=== PATIENT | female | born 1960 | race African-American/Black ===

== ENCOUNTER 2018-02-21 18:24 | Emergency (ER) | payer BC ==
[2018-02-21 19:12] LABS: Hemoglobin 11.9 g/dL (12.0-16.0); Mean Corpuscular HGB CONC 32.8 g/dL (32.0-36.0); Mean Corpuscular Hemoglobin 25.8 pg (27.0-31.0); Mean Corpuscular Volume 78.5 fl (81.0-99.0); Mean Platelet Volume 9.5 fL (7.4-10.4); Platelet Count 247 thou/uL (130-400); Red Blood Cell (RBC) Count 4.61 mill/uL (4.20-5.40); White Blood Cell (WBC) Count 8.9 thou/uL (4.8-10.8)
[2018-02-21] MEDS ORDERED: Ondansetron ODT 4 MG TAB ONE (19:12)
[2018-02-21 19:13] LABS: Bilirubin Negative (Negative); Blood, Urine Small (Negative); Clarity CLEAR (Clear); Glucose, Urine (Dipstick) 100 mg/dL (Negative); Leukocyte Negative (Negative); Nitrite Negative (Negative); Protein, Urine (Dipstick) 300 mg/dL (Neg-Trace); Specific Gravity, Urine 1.015 (1.002-1.036); Urobilinogen 0.2 mg/dL (0.2-1.0); pH, Urine 5.5 (5.0-9.0)
[2018-02-21 19:15] LABS: Bacteria/HPF None Seen HPF (None Seen); Hyaline Casts/LPF 0-3 HYALINE CAST LPF (0-3 Hyaline); Pathc Cast-AUWi Flag 0.58 (0-2.49)
[2018-02-21 19:25] LABS: Transitional Epithelial 0-3 HPF (0-3)
[2018-02-21 19:35] LABS: ALT (SGPT) 22 U/L (8-55); AST (SGOT) 18 U/L (5-34); Alkaline Phosphatase 103 U/L (40-150); Anion Gap 14 mmol/L (10-20); BUN (Urea Nitrogen) 27 mg/dL (9.8-20.1); Bilirubin, Total 0.4 mg/dL (0.2-1.2); Calc. Creatinine Clearance 0 mL/min (70-130); Calcium 9.7 mg/dL (7.8-10.44); Carbon Dioxide 21 mmol/L (22-29); Chloride 110 mmol/L (98-107); Estimated GFR-MDRD 26; Globulin 3.6 g/dL (2.4-3.5); Glucose 153 mg/dL (70-105); Lipase 11 U/L (8-78); Potassium 4.2 mmol/L (3.5-5.1); Protein, Total 7.6 g/dL (6.0-8.3); Sodium 141 mmol/L (136-145)
[2018-02-21 19:37] LABS: Band 10 % (5-11); Eosinophils 3 % (0-10); Hypochromia SLIGHT = 6-15 cells (100X) (0-5/hpf); Lymphocytes 9 % (21-51); MDiff Complete? YES; Microcytosis SLIGHT = 6-15 cells (100X) (0-5/hpf); Monocytes 3 % (0-10); Neutrophil 75 % (42-75); Ovalocytes SLIGHT = 2-5 cells (100X) (0-1/hpf); PLT Morphology Comment Appears Adequate; Polychromasia SLIGHT = 2-3 cells (100X) (0-2/hpf)
[2018-02-21] MEDS ORDERED: Acetaminophen 500 MG TAB ONE (20:39)
[2018-02-21] MEDS ORDERED: metroNIDAZOLE 250 MG TAB ONE (20:42)
== END 2018-02-21 21:43 | disposition home or self-care (01) ==
LOC: ERS 18:24
DX: R19.7 Diarrhea, unspecified (principal); R50.9 Fever, unspecified; I12.9 Hypertensive chronic kidney disease with stage 1 through stage 4 chronic kidney disease, or unspecified chronic kidney disease; N18.9 Chronic kidney disease, unspecified; E11.9 Type 2 diabetes mellitus without complications; E78.5 Hyperlipidemia, unspecified; I10 Essential (primary) hypertension; F32.9 Major depressive disorder, single episode, unspecified
CPT/HCPCS: 36415; 80053; 81003; 81015; 83690; 85025; 96360; Q0162

== ENCOUNTER 2018-04-05 11:23 | Outpatient (CLI) | payer BC | END 2018-04-05 11:24 | disposition home or self-care (01) | LOC: BICMAMMO 11:23 | PROVIDERS: ATTEND Family Medicine | DX: Z12.31 Encounter for screening mammogram for malignant neoplasm of breast (principal) | CPT/HCPCS: 77063; 77067 ==

== ENCOUNTER 2018-08-04 16:00 | Outpatient (CLI) | payer BC | END 2018-08-04 16:01 | disposition home or self-care (01) | LOC: SLEEPLAB 16:00 | PROVIDERS: ATTEND Family Medicine | DX: G47.33 Obstructive sleep apnea (adult) (pediatric) (principal); R53.83 Other fatigue; E66.9 Obesity, unspecified; R06.83 Snoring; F32.9 Major depressive disorder, single episode, unspecified; R51 Headache; I10 Essential (primary) hypertension; E11.9 Type 2 diabetes mellitus without complications; G31.84 Mild cognitive impairment of uncertain or unknown etiology | CPT/HCPCS: 95806 ==

== ENCOUNTER 2019-02-23 22:17 | Inpatient (IN) | payer BC ==
[2019-02-23 22:50] LABS: #Basophils 0.1 thou/uL (0.0-0.2); #Eosinphils 0.1 thou/uL (0.0-0.7); #Lymphocytes 2.3 thou/uL (1.20-3.40); #Monocytes 0.6 thou/uL (0.11-0.59); %Basophils 0.7 % (0.0-1.0); %Eosinophils 1.8 % (0.0-10.0); %Lymphocytes 28.7 % (21.0-51.0); %Monocytes 6.9 % (0.0-10.0); %Neutrophils 61.9 % (42.0-75.0); Hemoglobin 9.9 g/dL (12.0-16.0); Mean Corpuscular HGB CONC 32.2 g/dL (32.0-36.0); Mean Corpuscular Hemoglobin 25.7 pg (27.0-31.0); Mean Platelet Volume 9.5 fL (7.4-10.4); Platelet Count 236 thou/uL (130-400); Red Blood Cell (RBC) Count 3.83 mill/uL (4.20-5.40); White Blood Cell (WBC) Count 8.1 thou/uL (4.8-10.8)
[2019-02-23] MEDS ORDERED: Nitroglycerin 2% Ointment 1 INCH/1 GM Packet ONE (22:50)
--- NOTE | 2019-02-23 22:55 | RAD ---
XR Chest 1 View Portable History: [Difficulty breathing. Hypertension.] Comparison: Chest radiograph 02/17/2019 Findings: Lungs are clear. No pneumothorax or effusion. Cardiac silhouette and mediastinal contours a re within normal limits. Impression: No acute intrathoracic abnormality.
[2019-02-23 23:16] LABS: ALT (SGPT) 26 U/L (8-55); AST (SGOT) 22 U/L (5-34); Albumin 3.6 g/dL (3.5-5.0); Alkaline Phosphatase 89 U/L (40-150); Anion Gap 15 mmol/L (10-20); BUN (Urea Nitrogen) 36 mg/dL (9.8-20.1); Bilirubin, Total 0.2 mg/dL (0.2-1.2); Calc. Creatinine Clearance 0 mL/min (70-130); Calcium 9.3 mg/dL (7.8-10.44); Carbon Dioxide 23 mmol/L (22-29); Chloride 107 mmol/L (98-107); Estimated GFR-MDRD 19; Globulin 2.6 g/dL (2.4-3.5); Glucose 341 mg/dL (70-105); Potassium 3.7 mmol/L (3.5-5.1); Protein, Total 6.2 g/dL (6.0-8.3); Sodium 141 mmol/L (136-145)
[2019-02-24] MEDS ORDERED: Ondansetron ODT 4 MG TAB SL PRN (01:14)
[2019-02-24] MEDS ORDERED: Ondansetron PF 4 MG/2 ML Vial IVP PRN (01:14)
[2019-02-24] MEDS ORDERED: Dextrose 50% Abboject 50 ML SYRINGE SLOW IVP PRN (01:22)
[2019-02-24] MEDS ORDERED: Dextrose 5% in Water 1,000 ML IV PRN (01:22)
[2019-02-24] MEDS ORDERED: hydrALAZINE 20 MG/ML VIAL SLOW IVP PRN (01:25)
[2019-02-24 01:55] VITALS: BMI 33.5
[2019-02-24 02:11] LABS: Troponin I 0.046 ng/mL (< 0.028)
[2019-02-24] MEDS ORDERED: HumaLOG 300 UNITS/3 ML VIAL SC PRN (05:37)
[2019-02-24] MEDS ORDERED: Non-Formulary Item 1 EACH (Ondansetron Hcl 4 MG) PO PRN (05:37)
[2019-02-24 05:41] LABS: #Eosinphils 0.2 thou/uL (0.0-0.7); #Lymphocytes 1.9 thou/uL (1.20-3.40); #Monocytes 0.7 thou/uL (0.11-0.59); #Neutrophils 4.4 thou/uL (1.40-6.50); %Basophils 0.3 % (0.0-1.0); %Eosinophils 2.3 % (0.0-10.0); %Lymphocytes 26.7 % (21.0-51.0); %Monocytes 9.8 % (0.0-10.0); %Neutrophils 60.9 % (42.0-75.0); Hemoglobin 9.3 g/dL (12.0-16.0); Mean Corpuscular HGB CONC 31.7 g/dL (32.0-36.0); Mean Corpuscular Hemoglobin 25.7 pg (27.0-31.0); Platelet Count 219 thou/uL (130-400); RBC Distribution Width 13.1 % (11.5-14.5); Red Blood Cell (RBC) Count 3.62 mill/uL (4.20-5.40); White Blood Cell (WBC) Count 7.3 thou/uL (4.8-10.8)
[2019-02-24 05:56] LABS: Anion Gap 13 mmol/L (10-20); BUN (Urea Nitrogen) 37 mg/dL (9.8-20.1); Calc. Creatinine Clearance 32 mL/min (70-130); Calcium 9.2 mg/dL (7.8-10.44); Carbon Dioxide 25 mmol/L (22-29); Chloride 110 mmol/L (98-107); Estimated GFR-MDRD 21; Glucose 197 mg/dL (70-105); Potassium 3.9 mmol/L (3.5-5.1); Sodium 144 mmol/L (136-145)
[2019-02-24 06:02] LABS: Troponin I 0.053 ng/mL (< 0.028)
[2019-02-24] MEDS ORDERED: Ondansetron ODT 4 MG TAB PO PRN (06:11)
--- NOTE | 2019-02-24 06:59 | HP ---
PRIMARY CARE PHYSICIAN: Michael Padilla MD CODE STATUS: Full code. TIME OF EVALUATION: 12:25 a.m. CHIEF COMPLAINT: Chest pain. HISTORY OF PRESENT ILLNESS: This is a 58-year-old female patient with past medical history of diabetes, hyperlipidemia, hypertension, and CKD, came to the hospital after having severe chest pain that was in the middle of the chest associated with shortness of breath and very high blood pressure. The patient has had some change in medication for blood pressure in the past few days, had been switched to clonidine patch, those are her p.o. medications. She has reported that she has been uncontrolled and this is likely the trigger for her symptoms. Symptoms have improved after blood pressure has been controlled in the ER. Symptoms were severe and with sudden onset, rated at 10/10 when tested. REVIEW OF SYSTEMS: CONSTITUTIONAL: No fever, chills, or generalized weakness. RESPIRATORY: No cough or sputum production. The patient did report shortness of breath. CARDIOVASCULAR: The patient has chest pain with high blood pressure. No palpitation. GASTROINTESTINAL: The patient had nausea. No vomiting, diarrhea, or abdominal pain. 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 GENITOURINARY: No burning on urination. EXTREMITIES: leg swelling. All other systems were reviewed and negative except for the findings mentioned above. PAST MEDICAL HISTORY: As mentioned in the HPI. PAST SURGICAL HISTORY: Right rotator cuff repair, cholecystectomy, and hysterectomy. PSYCHIATRIC HISTORY: Includes depression. SOCIAL HISTORY: No alcohol. No drugs. No smoking history. FAMILY HISTORY: Reviewed and noncontributory for current presentation. KNOWN ALLERGIES: To Ambien, Zithromax, clarithromycin, Compazine, erythromycin, hydrocodone, iodine contrast, lisinopril, prochlorperazine, Restoril, tramadol, and zolpidem. REPORTED MEDICATIONS: 1. Clonidine patch. 2. Calcitriol. 3. Ferrous sulfate. 4. Hydralazine. 5. Nifedipine. 6. Combigan. 7. Nitroglycerin. 8. Lipitor. 9. Doxycycline. 10. Pantoprazole. 11. Zofran. 12. Fluoxetine. 13. Metoprolol. 14. Humalog. 15. Trazodone. 16. Tradjenta. PHYSICAL EXAMINATION: VITAL SIGNS: On presentation; blood pressure 181/85 with heart rate 91, respiratory rate was 20, temperature 98.6, pain was 0/10, and oxygen saturation was 99% on room air. GENERAL APPEARANCE: The patient is alert, oriented, not in acute distress. HEENT: Eyes, normal conjunctivae. Moist oral mucosa. Anicteric. No JVD. RESPIRATORY: Bilateral air entry. No rales. No wheezes. Symmetric expansion. CARDIOVASCULAR: Normal rate. Regular rhythm. No murmurs. No gallop. leg edema. ABDOMEN: Soft. Normal bowel sounds. MUSCULOSKELETAL: Baseline range of motion and strength. No tenderness. SKIN: Warm, intact. No pallor. No rash. No redness. Peripheral pulses are present. Capillary refill seems to be intact. NEURO: No evidence of any new focal weakness. Baseline speech. Cranial nerves seem to be intact. PSYCH: The patient is in good mood. No anxiety. Optimal judgment. DIAGNOSTIC DATA: EKG was reviewed. The patient has normal sinus rhythm with a rate of 83, NV 112, QRS 68, and QT corrected 477. Chest x-ray was reviewed. The patient had no acute intrathoracic abnormalities. LABORATORY DATA: Reviewed. The patient has white count 8.1, hemoglobin 9.9, MCV 80, and platelet count 236. D-dimer 0.66. Chemistry; sodium 141, potassium 3.7, chloride 107, carbon dioxide 23, anion gap 15, BUN 36, creatinine 3.03, GFR 19, glucose 241, calcium 9.3, total bilirubin 0.2, AST 22, ALT 26, and alkaline phos 89. Troponin 0.025, the second one 0.046. Beta natriuretic peptide 79.5. ASSESSMENT AND PLAN: The patient will be placed in the hospital with following medical problems: 1. Hypertensive emergency. The patient presented with chest pain and shortness of breath associated with very high blood pressure. Home medications have been restarted and reconciled them. 2. Hyperlipidemia. Low-cholesterol diet is advised. Continue atorvastatin. 3. Chronic kidney disease. The patient follows with Dr. Patel as outpatient. Might need to be consulted for a system with blood pressure control and needs for hemodialysis. 4. Deep venous thrombosis prophylaxis. The patient will be placed on heparin. 5. Uncontrolled diabetes with blood sugar at 241. The patient's home medications have been reconciled. The patient has been started on sliding scale. 6. Mildly elevated D-dimer, could be related to underlying kidney disease. The patient presented with chest pain, so a V/Q scan will be done in the morning. Unable to do CT due to kidney failure. 7. Chronic normocytic anemia with MCV 80. This is a chronic problem. The patient is stable. No need for any acute intervention at this point. 8. [id number] myocardial infarction, type 2. The patient has an increase in troponin from 0.025 to 0.046. This is likely secondary to underlying hypertensive emergency. We will treat underlying condition. We will trend troponin and treat accordingly. Job ID: [id number]
[2019-02-24] MEDS: Calcitriol 0.25 MCG CAP PO SCH (08:39)
[2019-02-24] MEDS: hydrALAZINE 25 MG TAB PO SCH ×3 (08:39→21:36)
[2019-02-24] MEDS: Ferrous Sulfate 325 MG TAB PO SCH (08:40)
[2019-02-24] MEDS: NIFEdipine XL 30 MG TAB PO SCH (08:40)
[2019-02-24] MEDS: Heparin 5,000 UNITS/ML VIAL SC SCH ×3 (08:42→21:37)
[2019-02-24] MEDS ORDERED: DOXYCYCLINE HYCLATE 100 MG PO SCH (09:00)
[2019-02-24] MEDS ORDERED: Non-Formulary Item 1 EACH (Pantoprazole Sodium [Protonix] 40 MG) PO SCH (09:00)
[2019-02-24] MEDS ORDERED: Non-Formulary Item 1 EACH (Hydralazine Hcl [Hydralazine Hcl] 50 MG) PO SCH (09:00)
[2019-02-24] MEDS ORDERED: NIFEdipine XL 60 MG TAB PO SCH (09:00)
[2019-02-24] MEDS ORDERED: Non-Formulary Item 1 EACH (Metoprolol Succinate [Metoprolol Succinate] 200 MG) PO SCH (09:00)
[2019-02-24] MEDS ORDERED: Non-Formulary Item 1 EACH (Linagliptin [Tradjenta] 5 MG) PO SCH (09:00)
[2019-02-24] MEDS ORDERED: cloNIDine 0.2mg/24 Hour PATCH TD SCH ×2 (09:00)
[2019-02-24] MEDS: Alogliptin 25 MG TAB PO SCH (10:08)
[2019-02-24] MEDS: Brimonidine Tartrate 0.2% Ophth Soln 5 ml Bottle R EYE SCH ×2 (10:08→21:35)
[2019-02-24] MEDS: Acetaminophen 325 MG TAB PO PRN (10:10)
[2019-02-24] MEDS: Timolol 0.5% Ophth Soln 5 ml Bottle R EYE SCH ×2 (10:10→21:40)
[2019-02-24] MEDS: Insulin Regular 300 UNITS/3 ML VIAL SC PRN (11:47)
--- NOTE | 2019-02-24 16:33 | PDOC.PN ---
- Subjective Encounter Start Date: 02/24/19 Encounter Start Time: 09:30 Subjective: Reports chest is improved, SOB is better -: Reports having a stress test done by Dr. jacobs last month -: Is not sure of results - Objective Resuscitation Status - Order Detail: 02/24/19 01:20 Resuscitation Status Routine Resuscitation Status: FULL: Full Resuscitation Vital Signs & Weight: Vital Signs (12 hours) Temp Pulse Resp BP BP Pulse Ox 02/24/19 15:32 98.5 F 71 16 178/84 H 96 02/24/19 15:19 69 02/24/19 11:07 98.8 F 77 16 177/57 H 98 02/24/19 10:10 74 02/24/19 08:40 74 02/24/19 08:39 74 02/24/19 07:16 98.5 F 77 20 180/83 H 98 02/24/19 04:50 98.3 F 78 20 165/79 H 98 Weight Weight 91.535 kg I&O: 02/23/19 02/24/19 02/25/19 06:59 06:59 06:59 Intake Total 360 240 Output Total 500 Balance -140 240 Result Diagrams: 02/24/19 04:46 02/24/19 04:46 Additional Labs: Accuchecks 02/24/19 11:12 POC Glucose 243 H Phys Exam - Physical Examination HEENT: PERRLA, moist MMs Neck: no nodes, full ROM Respiratory: clear to auscultation bilateral Cardiovascular: RRR Gastrointestinal: soft, non-tender Musculoskeletal: no edema, pulses present Neurological: non-focal, normal sensation Lymphatic: no nodes Psychiatric: normal affect, A&O x 3 Skin: cap refill <2 seconds Dx/Plan (1) Chest discomfort Code(s): R07.89 - OTHER CHEST PAIN Status: Acute (2) Dyspnea Code(s): R06.00 - DYSPNEA, UNSPECIFIED Status: Acute (3) Hypertension Code(s): I10 - ESSENTIAL (PRIMARY) HYPERTENSION Status: Chronic (4) Chronic renal disease Code(s): N18.9 - CHRONIC KIDNEY DISEASE, UNSPECIFIED Status: Chronic - Plan cont current plan of care VQ scan today -: Consult cardiology for persistent CP, stress last month -: VS and symptoms improved, will continue to monitor * .
[2019-02-24] MEDS ORDERED: INSULIN GLARGINE HUM REC ANLOG 35 UNIT SC SCH (21:00)
[2019-02-24] MEDS ORDERED: Non-Formulary Item 1 EACH (Atorvastatin Calcium [Lipitor] 80 MG) PO SCH (21:00)
[2019-02-24] MEDS ORDERED: INSULIN GLARGINE HUM REC ANLOG 58 UNIT SC SCH (21:00)
[2019-02-24] MEDS: Insulin Glargine 35 UNITS in Pre-Filled Syringe 1 EACH SC SCH ×2 (21:34→21:44)
[2019-02-24] MEDS: Atorvastatin Calcium 40 MG TAB PO SCH (21:36)
[2019-02-24] MEDS: FLUoxetine HCl 20 MG CAP PO SCH (21:37)
[2019-02-25] MEDS: Ferrous Sulfate 325 MG TAB PO SCH (09:17)
[2019-02-25] MEDS: Calcitriol 0.25 MCG CAP PO SCH (09:17)
[2019-02-25] MEDS: NIFEdipine XL 30 MG TAB PO SCH (09:17)
[2019-02-25] MEDS: hydrALAZINE 25 MG TAB PO SCH ×3 (09:17→21:38)
[2019-02-25] MEDS: Brimonidine Tartrate 0.2% Ophth Soln 5 ml Bottle R EYE SCH ×2 (09:18→21:37)
[2019-02-25] MEDS: Timolol 0.5% Ophth Soln 5 ml Bottle R EYE SCH ×2 (09:18→21:37)
[2019-02-25] MEDS: Heparin 5,000 UNITS/ML VIAL SC SCH ×3 (09:19→21:39)
[2019-02-25] MEDS: Alogliptin 25 MG TAB PO SCH (09:20)
[2019-02-25 09:27] LABS: #Basophils 0.1 thou/uL (0.0-0.2); #Eosinphils 0.2 thou/uL (0.0-0.7); #Lymphocytes 1.6 thou/uL (1.20-3.40); #Monocytes 0.6 thou/uL (0.11-0.59); #Neutrophils 4.2 thou/uL (1.40-6.50); %Eosinophils 3.5 % (0.0-10.0); %Lymphocytes 23.5 % (21.0-51.0); %Monocytes 9.3 % (0.0-10.0); %Neutrophils 62.7 % (42.0-75.0); Hemoglobin 10.4 g/dL (12.0-16.0); Mean Corpuscular HGB CONC 31.9 g/dL (32.0-36.0); Mean Corpuscular Hemoglobin 25.7 pg (27.0-31.0); Mean Corpuscular Volume 80.4 fL (78.0-98.0); Mean Platelet Volume 9.7 fL (7.4-10.4); Platelet Count 233 thou/uL (130-400); Red Blood Cell (RBC) Count 4.04 mill/uL (4.20-5.40); White Blood Cell (WBC) Count 6.8 thou/uL (4.8-10.8)
[2019-02-25 09:44] LABS: Anion Gap 14 mmol/L (10-20); BUN (Urea Nitrogen) 32 mg/dL (9.8-20.1); Calc. Creatinine Clearance 36 mL/min (70-130); Calcium 9.8 mg/dL (7.8-10.44); Carbon Dioxide 26 mmol/L (22-29); Chloride 108 mmol/L (98-107); Estimated GFR-MDRD 24; Glucose 71 mg/dL (70-105); Potassium 3.8 mmol/L (3.5-5.1); Sodium 144 mmol/L (136-145)
--- NOTE | 2019-02-25 18:30 | PDOC.PN ---
- Subjective Encounter Start Date: 02/25/19 Encounter Start Time: 11:30 Subjective: Patient examined, denies complaints -: Denies CP, SOB today -: No overnight events - Objective Resuscitation Status - Order Detail: 02/24/19 01:20 Resuscitation Status Routine Resuscitation Status: FULL: Full Resuscitation Vital Signs & Weight: Vital Signs (12 hours) Temp Pulse Resp BP Pulse Ox 02/25/19 15:34 97.8 F 64 16 182/78 H 97 02/25/19 11:27 98.8 F 57 L 20 162/70 H 98 02/25/19 07:50 98.0 F 53 L 16 181/75 H 99 Weight Weight 91.535 kg I&O: 02/24/19 02/25/19 02/26/19 06:59 06:59 06:59 Intake Total 360 1460 Output Total 500 Balance -140 1460 Result Diagrams: 02/25/19 09:03 02/25/19 09:03 Additional Labs: Accuchecks 02/25/19 02/25/19 02/25/19 16:36 12:34 11:33 POC Glucose 111 H 110 63 L 02/25/19 02/24/19 04:02 20:45 POC Glucose 203 H 162 H Phys Exam - Physical Examination HEENT: PERRLA, moist MMs Neck: no nodes Respiratory: clear to auscultation bilateral Cardiovascular: RRR Gastrointestinal: soft, non-tender Musculoskeletal: pulses present, edema present Neurological: non-focal, normal sensation Lymphatic: no nodes Psychiatric: normal affect, A&O x 3 Skin: no rash Dx/Plan (1) Chest discomfort Code(s): R07.89 - OTHER CHEST PAIN Status: Acute (2) Dyspnea Code(s): R06.00 - DYSPNEA, UNSPECIFIED Status: Acute (3) Hypertension Code(s): I10 - ESSENTIAL (PRIMARY) HYPERTENSION Status: Chronic (4) Chronic renal disease Code(s): N18.9 - CHRONIC KIDNEY DISEASE, UNSPECIFIED Status: Chronic - Plan Awaiting for cardiology recommendations, patient with neg stress -: a month ago but still having chest pain, -: Will continue to monitor, -: Discussed with Dr. Quiroz * .
[2019-02-25] MEDS ORDERED: cloNIDine 0.1 MG TAB PO PRN (18:48)
[2019-02-25] MEDS: FLUoxetine HCl 20 MG CAP PO SCH (21:38)
[2019-02-25] MEDS: Atorvastatin Calcium 40 MG TAB PO SCH (21:38)
[2019-02-25] MEDS: Insulin Glargine 35 UNITS in Pre-Filled Syringe 1 EACH SC SCH (21:40)
[2019-02-25] MEDS: Acetaminophen 325 MG TAB PO PRN (22:45)
[2019-02-26] MEDS: Nitroglycerin 0.4 MG TAB (25 Tab Bottle) SL PRN ×2 (02:35→02:40)
[2019-02-26] MEDS: Acetaminophen 325 MG TAB PO PRN (02:50)
[2019-02-26] MEDS: Calcitriol 0.25 MCG CAP PO SCH (09:38)
[2019-02-26] MEDS: Heparin 5,000 UNITS/ML VIAL SC SCH ×3 (09:39→21:14)
[2019-02-26] MEDS: Ferrous Sulfate 325 MG TAB PO SCH (09:39)
[2019-02-26] MEDS: Timolol 0.5% Ophth Soln 5 ml Bottle R EYE SCH ×2 (09:39→21:13)
[2019-02-26] MEDS: hydrALAZINE 25 MG TAB PO SCH ×3 (09:39→21:15)
[2019-02-26] MEDS: NIFEdipine XL 30 MG TAB PO SCH (09:39)
[2019-02-26] MEDS: Brimonidine Tartrate 0.2% Ophth Soln 5 ml Bottle R EYE SCH ×2 (09:40→21:11)
[2019-02-26] MEDS: Alogliptin 25 MG TAB PO SCH (09:41)
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
--- NOTE | 2019-02-26 14:26 | PDOC.PN ---
- Subjective Encounter Start Date: 02/26/19 Encounter Start Time: 07:40 Pt seen for followup re: chest pain. Reports chest pain is better. No nausea or vomiting. - Objective Resuscitation Status - Order Detail: 02/24/19 01:20 Resuscitation Status Routine Resuscitation Status: FULL: Full Resuscitation MAR Reviewed: Yes Vital Signs & Weight: Vital Signs (12 hours) Temp Pulse Resp BP BP Pulse Ox 02/26/19 10:45 97.5 F L 63 16 148/73 H 99 02/26/19 09:39 57 L 02/26/19 07:47 98.2 F 57 L 20 154/72 H 100 02/26/19 02:55 135/69 02/26/19 02:35 61 18 160/77 H Weight Weight 201 lb 12.8 oz I&O: 02/25/19 02/26/19 02/27/19 06:59 06:59 06:59 Intake Total 1460 900 Balance 1460 900 Result Diagrams: 02/25/19 09:03 02/25/19 09:03 Additional Labs: Accuchecks 02/26/19 02/26/19 02/25/19 10:50 06:12 20:46 POC Glucose 91 99 268 H 02/25/19 16:36 POC Glucose 111 H EKG Reviewed by me: Yes (Tele; NSR) Phys Exam - Physical Examination Obese HEENT: moist MMs Neck: supple Respiratory: clear to auscultation bilateral Cardiovascular: RRR Gastrointestinal: soft Neurological: moves all 4 limbs Psychiatric: normal affect Dx/Plan (1) Chest pain Code(s): R07.9 - CHEST PAIN, UNSPECIFIED Status: Acute Comment: for cath tomorrow; VQ report pending (2) Chronic renal disease Code(s): N18.9 - CHRONIC KIDNEY DISEASE, UNSPECIFIED Status: Chronic Qualifiers: Chronic kidney disease stage: stage 4 (severe) Qualified Code(s): N18.4 - Chronic kidney disease, stage 4 (severe) Comment: stable (3) Hypertension Code(s): I10 - ESSENTIAL (PRIMARY) HYPERTENSION Status: Chronic Comment: Monitor vital signs, titrate antihypertensives as needed - Plan * . Review of Systems - Review of Systems Cardiovascular: chest pain. negative: palpitations, orthopnea, paroxysmal nocturnal dyspnea, edema, light headedness Gastrointestinal: negative: Nausea, Vomiting, Abdominal Pain, Diarrhea, Constipation, Melena, Hematochezia - Medications/Allergies Allergies/Adverse Reactions: Allergies Allergy/AdvReac Type Severity Reaction Status Date / Time hydrocodone bitartrate Allergy Severe Verified 02/24/19 02:02 [From Beason] prochlorperazine edisylate Allergy Severe Short of Verified 02/24/19 02:02 [From Compazine] Breath prochlorperazine maleate Allergy Severe Short of Verified 02/24/19 02:02 [From Compazine] Breath azithromycin Allergy Mild Rash Verified 02/24/19 02:02 clarithromycin Allergy Mild Rash Verified 02/24/19 02:02 erythromycin base Allergy Mild Rash Verified 02/24/19 02:02 [Erythromycin Base] lisinopril Allergy Mild Verified 02/24/19 02:02 tramadol Allergy Mild Verified 02/24/19 02:02 zolpidem [Zolpidem] Allergy Mild Verified 02/24/19 02:02 Medications: Current Medications Acetaminophen (Tylenol) 650 mg PO Q4H PRN PRN Reason: Headache/Fever/Mild Pain (1-3) Last Admin: 02/26/19 02:50 Dose: 650 mg Alogliptin Benzoate (Alogliptin) 25 mg PO DAILY [facility] Last Admin: 02/26/19 09:41 Dose: Not Given Atorvastatin Calcium (Lipitor) 80 mg PO HS [facility] Last Admin: 02/25/19 21:38 Dose: 80 mg Brimonidine Tartrate (Alphagan 0.2% Ophth Soln) 1 drop R EYE BID [facility] Last Admin: 02/26/19 09:40 Dose: 1 drop Calcitriol (Rocaltrol) 0.25 mcg PO DAILY [facility] Last Admin: 02/26/19 09:38 Dose: 0.25 mcg Clonidine (Clcpgbvi-Sdy-6) 0.2 mg TD Q7DAYS [facility] Last Admin: 02/24/19 08:42 Dose: 0.2 mg Clonidine (Catapres) 0.1 mg PO Q4H PRN PRN Reason: SBP Greater Than 170 Dextrose/Water (Dextrose 50%) 25 gm SLOW IVP PRN PRN PRN Reason: Hypoglycemia Ferrous Sulfate (Feosol) 325 mg PO DAILY [facility] Last Admin: 02/26/19 09:39 Dose: 325 mg Fluoxetine HCl (Prozac) 60 mg PO HS [facility] Last Admin: 02/25/19 21:38 Dose: 60 mg Glucagon (Glucagon) 1 mg IM PRN PRN PRN Reason: Hypoglycemia Heparin Sodium (Porcine) (Heparin) 5,000 units SC TID [facility] Last Admin: 02/26/19 09:39 Dose: 5,000 units Hydralazine HCl (Apresoline) 10 mg SLOW IVP Q4H PRN PRN Reason: BP>180/100 Hydralazine HCl (Apresoline) 50 mg PO TID [facility] Last Admin: 02/26/19 09:39 Dose: 50 mg Dextrose/Water (D5w) 1,000 mls @ 0 mls/hr IV .Q0M PRN PRN Reason: Hypoglycemia Insulin Glargine 35 units/ (Miscellaneous Medication) 0.35 mls @ 0 mls/hr SC [facility] Last Admin: 02/25/19 21:40 Dose: 0.35 mls Sodium Chloride (Normal Saline 0.9%) 1,000 mls @ 75 mls/hr IV .[id number] [facility] Insulin Human Regular (Humulin R) 0 units SC .MILD SLIDING SCALE PRN PRN Reason: Mild Correctional Scale Last Admin: 02/24/19 11:47 Dose: 3 unit Metoprolol Succinate (Toprol Xl) 200 mg PO DAILY [facility] Last Admin: 02/26/19 09:41 Dose: Not Given Nifedipine (Procardia Xl) 30 mg PO DAILY [facility] Last Admin: 02/26/19 09:39 Dose: 30 mg Nitroglycerin (Nitrostat) 0.4 mg SL Q5MIN PRN PRN Reason: Chest Pain Last Admin: 02/26/19 02:40 Dose: 0.4 mg Ondansetron HCl (Zofran Odt) 4 mg PO Q6H PRN PRN Reason: Nausea/Vomiting Pantoprazole Sodium (Protonix) 40 mg PO DAILY [facility] Last Admin: 02/26/19 09:38 Dose: 40 mg Sodium Chloride (Flush - Normal Saline) 10 ml IVF Q12HR [facility] Last Admin: 02/26/19 09:40 Dose: 10 ml Sodium Chloride (Flush - Normal Saline) 10 ml IVF PRN PRN PRN Reason: Saline Flush Timolol Maleate (Timoptic 0.5% [facility] Soln) 1 drop R EYE BID [facility] Last Admin: 02/26/19 09:39 Dose: 1 drop Trazodone HCl (Desyrel) 100 mg PO HS [facility] Last Admin: 02/25/19 21:39 Dose: 100 mg
[2019-02-26] MEDS: Sodium Chloride 0.9% 1,000 ML IV SCH (15:52)
[2019-02-26] MEDS: Insulin Regular 300 UNITS/3 ML VIAL SC PRN ×2 (18:28→21:17)
[2019-02-26] MEDS: Insulin Glargine 35 UNITS in Pre-Filled Syringe 1 EACH SC SCH (21:14)
[2019-02-26] MEDS: FLUoxetine HCl 20 MG CAP PO SCH (21:15)
[2019-02-26] MEDS: Atorvastatin Calcium 40 MG TAB PO SCH (21:16)
[2019-02-27 06:06] LABS: Anion Gap 12 mmol/L (10-20); BUN (Urea Nitrogen) 40 mg/dL (9.8-20.1); Calc. Creatinine Clearance 32 mL/min (70-130); Calcium 8.9 mg/dL (7.8-10.44); Carbon Dioxide 23 mmol/L (22-29); Cardiac Risk 3.1 (Less than 4.5); Chloride 107 mmol/L (98-107); Cholesterol 115 mg/dl (< 200 Desired); Estimated GFR-MDRD 21; Glucose 156 mg/dL (70-105); HDL Cholesterol 37 mg/dL (>60 Neg Risk); LDL Cholesterol, Calculated 49 mg/dL; Sodium 138 mmol/L (136-145); Triglycerides 145 mg/dL (Less than 150)
[2019-02-27] MEDS: Sodium Chloride 0.9% 1,000 ML IV SCH ×3 (06:42→17:20)
--- NOTE | 2019-02-27 07:33 | NM ---
VQ SCAN: HISTORY: Shortness of breath TECHNIQUE: A ventilation/perfusion scan was performed using 15 mCi xenon-133 by inhalation for the ventilation s tudy followed by the intravenous administration of 6 mCi technetium 99m-MAA for the perfusion scan. CORRELATION: Chest radiograph from previous evening. FINDINGS: Homogeneity is noted in the tracer distribution to the lung rg bilaterally on ventilation and per fusion scans. No mismatched pleural-based, wedge-shaped, segmental or subsegmental perfusion defects are identified . IMPRESSION: Very low probability for pulmonary embolism.
[2019-02-27] MEDS: NIFEdipine XL 30 MG TAB PO SCH ×2 (08:44→21:16)
[2019-02-27] MEDS: Ferrous Sulfate 325 MG TAB PO SCH (08:44)
[2019-02-27] MEDS: hydrALAZINE 25 MG TAB PO SCH ×3 (08:44→21:16)
[2019-02-27] MEDS: Timolol 0.5% Ophth Soln 5 ml Bottle R EYE SCH ×2 (08:46→21:17)
[2019-02-27] MEDS: Calcitriol 0.25 MCG CAP PO SCH (08:46)
[2019-02-27] MEDS: Heparin 5,000 UNITS/ML VIAL SC SCH ×2 (08:47→15:45)
[2019-02-27] MEDS: Alogliptin 25 MG TAB PO SCH (08:47)
[2019-02-27] MEDS: Brimonidine Tartrate 0.2% Ophth Soln 5 ml Bottle R EYE SCH ×2 (08:47→21:17)
--- NOTE | 2019-02-27 16:26 | PDOC.CTH ---
Cardiology Progress Note - Subjective The pt seen and examined. No overnight events. No cardiac complaints. - Objective Vital Signs Temp Pulse Resp BP Pulse Ox 02/27/19 15:28 98.1 F 64 16 166/72 H 98 02/27/19 11:17 97.9 F 67 18 154/67 H 98 02/27/19 08:38 96 02/27/19 07:23 97.9 F 60 16 187/75 H 96 Weight 201 lb 12.8 oz 02/26/19 02/27/19 02/28/19 06:59 06:59 06:59 Intake Total 900 900 Output Total 500 Balance 900 400 - Physical Examination General/Neuro: alert & oriented x3 Neck: no JVD present Lungs: CTA Heart: RRR Abdomen: soft Extremities: other: (No edema) - Telemetry Telemetry Rhythm: SR - Labs Result Diagrams: 02/25/19 09:03 02/27/19 04:39 Troponin/CKMB Troponin I 0.053 ng/mL (< 0.028) H 02/24/19 04:46 - Assessment/Plan 1. CP - Holding LHC for now due to JUNAID on CKD; cont. to monitor on tele 2. HTN - Nifedipine 30mg was increased from qd to BID. 3. Hyperlipidemia - 4. DM type 2 - 5. CKD - Nephrology consult 6. Anemia - MAR reviewed Pt. seen and eval. by me. I agree with the A/P by the E LEARNING DEVELOPER. I will repeat the troponin -I in AM. They have been indeterminate thus far. She had 1 episode of chest pain and no more. The recent stress test was normal. A cardiac cath could worsen her renal function and lead to dialysis if an intervention was indicated. If Nephrology feels that she will be able to tolerate a small amount of contrast then I can perform the cath and if further intervention is indicated then stage the procedure based on the renal function. Review of Systems - Review of Systems Constitutional: reports: no symptoms reported EENTM: reports: no symptoms reported Respiratory: reports: no symptoms reported Cardiac (ROS): reports: no symptoms reported ABD/GI: reports: no symptoms reported : reports: no symptoms reported
[2019-02-27] MEDS ORDERED: cloNIDine 0.3mg/24 Hour PATCH TD SCH (18:00)
--- NOTE | 2019-02-27 20:54 | PRG ---
DATE OF SERVICE: 02/27/2019 SUBJECTIVE: The patient denies any new complaints. No new chest pain. She denies significant shortness of breath on exertion. No new leg swelling. No syncope or palpitations. Telemetry monitoring by my review showed sinus rhythm. CURRENT MEDICATIONS: Current medications were reviewed. The patient is on clonidine patch, Lantus, ferrous sulfate, Toprol-XL, and Procardia XL. OBJECTIVE: VITAL SIGNS: Temperature 98.1, pulse rate of 60, blood pressure of 187/75, O2 saturation 96% on room air and respiration of 16. GENERAL: A 58-year-old female in no apparent distress. LUNGS: Clear to auscultation bilaterally. No wheezing, rales, or rhonchi. HEART: S1, S2 present. Regular rate and rhythm. ABDOMEN: Soft, bowel sounds present. EXTREMITIES: No edema or calf tenderness. HEENT: There is some erythema over the conjunctiva in the right eye. Pupils were equally reacting to light. Visual field examination was intact. There was no pain with eyeball movement. REVIEW OF SYSTEMS: The patient complains of right eye watering along with erythema that started over the last 1-2 days. She normally follows a retina specialist every month or two. LABORATORY FINDINGS: Creatinine 2.8 with BUN 40. LDL was 49, cholesterol 115. V/Q scan this admission was negative. Chest x-ray on admission by my review was negative for acute findings. IMPRESSION: 1. Chest discomfort with recent negative stress test. 2. Acute kidney injury on chronic kidney disease stage 4. 3. Obstructive sleep apnea, on CPAP. 4. Suspected right eye conjunctivitis, questionable bacterial. 5. Diabetes mellitus type 2. 6. Obesity with a body mass index of 33.6. 7. Uncontrolled hypertension. 8. Chronic anemia. PLAN: We will add low-dose aspirin. We will increase Procardia XL to 30 mg b.i.d. due to uncontrolled blood pressure. We will add ciprofloxacin eyedrops. We will continue current dose of insulin. We will discontinue subcutaneous heparin since the patient is ambulating. We will recheck basic metabolic profile in a.m. Left heart catheterization is currently on hold due to abnormal kidney function. Nephrology has been consulted by Cardiology. Job ID: [id number]
[2019-02-27] MEDS ORDERED: traZODone HCl 50 MG TAB PO SCH (21:00)
[2019-02-27] MEDS ORDERED: Insulin Regular 300 UNITS/3 ML VIAL SC PRN (21:12)
[2019-02-27] MEDS: FLUoxetine HCl 20 MG CAP PO SCH (21:14)
[2019-02-27] MEDS: Atorvastatin Calcium 40 MG TAB PO SCH (21:15)
[2019-02-27] MEDS: Insulin Glargine 35 UNITS in Pre-Filled Syringe 1 EACH SC SCH (21:18)
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
[2019-02-28] MEDS: Sodium Chloride 0.9% 1,000 ML IV SCH (02:02)
[2019-02-28 05:48] LABS: #Basophils 0.1 thou/uL (0.0-0.2); #Eosinphils 0.2 thou/uL (0.0-0.7); #Lymphocytes 1.7 thou/uL (1.20-3.40); #Monocytes 0.7 thou/uL (0.11-0.59); #Neutrophils 3.3 thou/uL (1.40-6.50); %Basophils 0.9 % (0.0-1.0); %Eosinophils 3.4 % (0.0-10.0); %Lymphocytes 27.9 % (21.0-51.0); %Monocytes 12.2 % (0.0-10.0); %Neutrophils 55.5 % (42.0-75.0); Hemoglobin 8.9 g/dL (12.0-16.0); Mean Corpuscular HGB CONC 32.6 g/dL (32.0-36.0); Mean Corpuscular Hemoglobin 26.2 pg (27.0-31.0); Mean Corpuscular Volume 80.6 fL (78.0-98.0); Platelet Count 187 thou/uL (130-400); RBC Distribution Width 12.9 % (11.5-14.5); White Blood Cell (WBC) Count 5.9 thou/uL (4.8-10.8)
[2019-02-28 05:52] LABS: Anion Gap 11 mmol/L (10-20); BUN (Urea Nitrogen) 37 mg/dL (9.8-20.1); Calc. Creatinine Clearance 33 mL/min (70-130); Calcium 8.9 mg/dL (7.8-10.44); Carbon Dioxide 24 mmol/L (22-29); Chloride 109 mmol/L (98-107); Estimated GFR-MDRD 22; Glucose 176 mg/dL (70-105); Potassium 4.1 mmol/L (3.5-5.1); Sodium 140 mmol/L (136-145)
[2019-02-28 06:04] LABS: Troponin I Less than 0.010 ng/mL (< 0.028)
[2019-02-28] MEDS: Insulin Regular 300 UNITS/3 ML VIAL SC PRN (06:29)
--- NOTE | 2019-02-28 08:42 | PDOC.CTH ---
Cardiology Progress Note - Subjective The pt seen and examined. No overnight events. No cardiac complaints. - Objective Vital Signs Temp Pulse Resp BP BP Pulse Ox 02/28/19 07:46 98.2 F 66 16 134/62 98 02/28/19 03:40 97.8 F 62 16 156/68 H 100 02/27/19 23:43 98.5 F 65 20 151/69 H 99 02/27/19 21:17 76 146/67 H 02/27/19 21:16 76 146/67 H Weight 203 lb 9.6 oz 02/27/19 02/28/19 03/01/19 06:59 06:59 06:59 Intake Total 900 2286 Output Total 500 1000 Balance 400 1286 - Physical Examination General/Neuro: alert & oriented x3 Neck: no JVD present Lungs: CTA Heart: RRR Abdomen: soft Extremities: other: (No edema) - Telemetry Telemetry Rhythm: SR - Labs Result Diagrams: 02/28/19 05:03 02/28/19 05:03 Troponin/CKMB Troponin I Less than 0.010 ng/mL (< 0.028) 02/28/19 05:03 - Assessment/Plan 1. CP - Holding LHC for now due to JUNAID on CKD.No further CP. No EKG changes. Troponin I is < 0.01. No plan for cath at this time. 2. HTN - Increase Hydralazine from 50mg to 75mg TID; Cont. Nifedipine 30mg BID, Metoprolol 200mg qd, and Clonidine 0.3mg patch. 3. Hyperlipidemia - 4. DM type 2 - 5. CKD - On NS 100ml/h for Superimposed azotemia; managed by Nephrology 6. Anemia - MAR reviewed Pt. seen and eval. by me. She denies any cardiac symptoms. She had a recent negative stress test. CIE's were indeterminate and now normal. No significant EKG changes. At this time I feel that the risk of cardiac cath may outweigh the benefit due to her renal insufficiency. I will see her back in the office in 2- 3 weeks. She can be d/c'd from my perspective.gjm Review of Systems - Review of Systems Constitutional: reports: no symptoms reported EENTM: reports: no symptoms reported Respiratory: reports: no symptoms reported Cardiac (ROS): reports: no symptoms reported ABD/GI: reports: no symptoms reported : reports: no symptoms reported Musculoskeletal: reports: no symptoms reported
[2019-02-28] MEDS ORDERED: Aspirin 81 mg Enteric Coated Tablet PO SCH (09:00)
[2019-02-28] MEDS ORDERED: hydrALAZINE 25 MG TAB PO SCH (09:00)
--- NOTE | 2019-02-28 09:52 | PRG ---
DATE OF SERVICE: 02/28/2019 SUBJECTIVE: Ms. Oneill is a 58-year-old black female, seen for her acute kidney injury on top of her chronic renal failure. She is being given volume repletion. There is some stabilization of her renal function. Her most recent creatinine is now noted at 2.7 and yesterday this was 2.8. This may be her new baseline. No complaints of chest pain or shortness of breath. OBJECTIVE: VITAL SIGNS: Blood pressure is 156/68, heart rate 62, respiratory rate 16, temperature 97.8, and pulse ox 100%. GENERAL: Awake, alert, comfortable, not in distress. SKIN: Adequate turgor. HEENT: Slightly pale conjunctivae. Anicteric sclerae. No neck mass. No carotid bruits. No JVD. CHEST: No deformities. LUNGS: Clear breath sounds. No wheezing. No crackles. HEART: Normal sinus rhythm. No murmurs. No gallops. No rubs. ABDOMEN: Globular, soft, nontender. No masses. EXTREMITIES: No edema. No deformities. MEDICATIONS: Medications of February 28, 2019, reviewed. LABORATORY DATA: Laboratories of February 28, 2019; white count 5.9, hemoglobin 8.9. February 28, 2019, sodium 140, potassium 4.1, chloride 109, carbon dioxide 24, BUN 37, creatinine 2.7, glucose 176, calcium 8.9. ASSESSMENT AND PLAN: 1. Acute kidney injury on top of her chronic renal failure, slightly improved creatinine from 2.8 to 2.7 in the last 24 hours. 2. The plan is to hold off any diuretics with this patient. Hold off any TOMMIE inhibitors or ARB. As previously mentioned, this patient will eventually need dialytic intervention in the future. 3. Chest pain, resolved. Cardiology is following. Possibility of cardiac cath remains, but this will be decided by the major sales associate. If she undergo a cardiac cath, she has some degree of risk to develop dye induced ATN. 4. Overall agree with current management. Job ID: [id number]
[2019-02-28] MEDS: Ferrous Sulfate 325 MG TAB PO SCH (10:28)
[2019-02-28] MEDS: Calcitriol 0.25 MCG CAP PO SCH (10:29)
[2019-02-28] MEDS: NIFEdipine XL 30 MG TAB PO SCH (10:29)
[2019-02-28] MEDS: Brimonidine Tartrate 0.2% Ophth Soln 5 ml Bottle R EYE SCH (10:30)
[2019-02-28] MEDS: Timolol 0.5% Ophth Soln 5 ml Bottle R EYE SCH (10:31)
[2019-02-28] MEDS: Alogliptin 25 MG TAB PO SCH (10:34)
[2019-02-28 12:36] VITALS: BP 134/67; TEMP 98.3
--- NOTE | 2019-02-28 21:01 | DIS ---
DATE OF ADMISSION: 02/23/2019 DATE OF DISCHARGE: 02/28/2019 DISCHARGE DISPOSITION: Home. FOLLOWUP: 1. Follow up with primary care physician, Dr. Michael Padilla, in 1 week. 2. Follow up with Dr. Galvan, Cardiology, in 2 to 3 weeks. 3. Follow up with Dr. Patel as scheduled. DISCHARGE MEDICATIONS: 1. Aspirin 81 mg daily. 2. Procardia XL was increased to 30 mg b.i.d. All other home medications were left unchanged. The patient was also advised to increase the hydralazine dose to 50 mg four times a day if her blood pressure persistently remained elevated over 150s to 160s. The patient was seen on the day of discharge. Denies any new complaints. No chest pain, shortness of breath, or palpitations reported. BRIEF HOSPITAL COURSE: The patient is a 58-year-old female with hypertension, diabetes mellitus type 2, hyperlipidemia, and chronic kidney disease, presented to the hospital with chest discomfort. Please refer to the history and physical for further details. The patient was admitted to the hospital with a diagnosis of chest discomfort along with hypertensive crisis. Serial troponins were in the indeterminate range with a maximum troponin of 0.053. Her blood pressure in the emergency room was 181/85. She also underwent a V/Q scan due to elevated D-dimer that was negative. The patient was evaluated by Cardiology as well as Nephrology due to chronic kidney disease. She recently had a negative stress test as outpatient. Her creatinine on the day of discharge is 2.7 from 3.03 on admission. Cardiac catheterization was not done due to elevated creatinine. She has been cleared by Cardiology for discharge. FINAL DIAGNOSES: 1. Chest discomfort with recent negative stress test. 2. Elevated D-dimer with negative V/Q scan of the chest. 3. Acute kidney injury on chronic kidney disease stage 4, improving. 4. Obstructive sleep apnea, on CPAP. 5. Diabetes mellitus type 2. 6. Obesity with a BMI of 33.6. 7. Suspected right eye conjunctivitis. 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 8. Uncontrolled hypertension with hypertensive urgency on admission. 9. Chronic anemia. 10. Depression, mild, stable. 11. Hyperlipidemia. 12. Type 2 TX due to demand ischemia. PLAN: Plan of care was discussed with the patient in detail. She stated understanding. Job ID: [id number] [facility]
--- NOTE | 2019-03-01 04:58 | PQF ---
[employer]ist Crystal Reports Winform Viewer MALLORIENENACASEYIVETH ALICEA MD [id number] [place] [address] [id number] CLINICAL DOCUMENTATION CLARIFICATION FORM: POST DISCHARGE Addendum to original discharge summary date: ____ Late entry note date: __ DATE: 03-01-2019 ATTN: Iveth Gutiérrez Please exercise your independent, professional judgment in responding to the clarification form. Clinical indicators are provided on the bottom of this form for your review Can you please specify whether NSTEMI type 2 is ruled in or ruled out during this encounter? Please check appropriate box(s) to clarify if the following diagnosis has been ruled in or ruled out: NSTEMI type 2 [ ] Ruled in diagnosis [ ] Continue to treat [ ] Resolved [ ] Ruled out diagnosis [ ] Cannot rule out diagnosis [ ] Other diagnosis please specify: [ ] Unable to determine For continuity of documentation, please document condition throughout progress notes and discharge summary. Thank You. CLINICAL INDICATORS: H&P 05/[address] Liang came to the hospital after having severe chest pain that was in the middle of the chest associated with shortness of breath and very high blood pressure H&P 05/[address] Liang Symptoms were severe and sudden onset, rated 10/ 10 when tested H&P 05/[address] Liang Hypertensive Emergency H&P 05/[address] Liang Beta natriuretic peptide 79.5 H&P 05/[address] Liang Mildly elevetad D-dimer, could be related to underlying kidney disease. H&P 05/[address] Liang Non ST-elevation myocardial infarction type 2. The patient has an increase in troponon from 0.025 to 0.046. This is likely secondary to underlying hypertensive emergency. We will treat underlying condition. We will trend troponin and treat accordingly PN 05/[address] Shanice Sanderson Consult cardiology for persistent CP, stress last month PN 02/[address] Quiroz Pt seen for follow up re: chest pain. Reports chest pain is better. No nausea or vomiting DS 02/[address] Llanes The patient was admitted to the hospital with a diagnosis of chest discomfort along with hypertensive crisis DS 02/[address] Llanes Serial troponins were in the indeterminate range with a maximum troponin of 0.053. Her blood pressure in the emergency room was 181/85 DS 02/[address] Llanes She recentlly had a negative stress test as outpatient RISK FACTOR: H&P Dr. Liang- CKD H&P Dr. Liang- HTN H&P Dr. Liang- Hyperlipidemia DS Dr. Llanes- Diabtetes Mellitus type [address] Llanes- Obesity with a BMI of 33.6 TREATMENTS: Chest Xray by Dr boyce- 02/23/[address] Diaz-02/26 Nitroglycerin -DEC 20 Clonidine 0.2 mg TD-DEC 20 Metropolol 200 mg PO -DEC 20 (This form is maintained as a part of the permanent medical record) 2014 [employer] All Rights Reserved [email or web address] [not provided] MTDD
--- NOTE | 2019-03-01 15:05 | EKG ---
Test Reason : STAT CP Blood Pressure : / mmHG Vent. Rate : 058 BPM Atrial Rate : 058 BPM P-R Int : 138 ms QRS Dur : 070 ms QT Int : 504 ms P-R-T Axes : 022 000 000 degrees QTc Int : 494 ms Sinus bradycardia Minimal voltage criteria for LVH, may be normal variant Nonspecific T wave abnormality Prolonged QT Abnormal ECG Confirmed by ABUNDIO JETT ([id number]) on 03/01/2019 3:05:31 PM Referred By: Mt JOEL Confirmed By:ABUNDIO JETT
== END 2019-02-28 12:40 | disposition home or self-care (01) | DRG 281 ==
LOC: ERS 22:17 → 2SW 23:59 → OBSVTOIN 23:59
PROVIDERS: ADMIT Hospitalist; ATTEND Hospitalist
DX: I16.1 Hypertensive emergency (principal); I21.A1 Myocardial infarction type 2; N18.4 Chronic kidney disease, stage 4 (severe); N17.9 Acute kidney failure, unspecified; I12.0 Hypertensive chronic kidney disease with stage 5 chronic kidney disease or end stage renal disease; F32.9 Major depressive disorder, single episode, unspecified; E78.00 Pure hypercholesterolemia, unspecified; E11.22 Type 2 diabetes mellitus with diabetic chronic kidney disease; K21.9 Gastro-esophageal reflux disease without esophagitis; E11.21 Type 2 diabetes mellitus with diabetic nephropathy; G47.33 Obstructive sleep apnea (adult) (pediatric); H10.9 Unspecified conjunctivitis; E11.319 Type 2 diabetes mellitus with unspecified diabetic retinopathy without macular edema; E66.9 Obesity, unspecified; D63.1 Anemia in chronic kidney disease; Z88.5 Allergy status to narcotic agent; Z79.899 Other long term (current) drug therapy; Z88.1 Allergy status to other antibiotic agents; Z90.49 Acquired absence of other specified parts of digestive tract; Z90.710 Acquired absence of both cervix and uterus; Z79.4 Long term (current) use of insulin; Z88.8 Allergy status to other drugs, medicaments and biological substances; Z68.33 Body mass index [BMI] 33.0-33.9, adult
CPT/HCPCS: 36415; 36416; 71045; 78582; 80048; 80053; 80061; 83880; 84484; 85025; 85379; 93005; 93010; A9540; A9558; J1644; J1815; J1825

== ENCOUNTER 2019-07-11 09:38 | Outpatient (CLI) | payer BC ==
--- NOTE | 2019-07-11 10:45 | CT ---
CT of abdomen and pelvis: 07/11/2019 COMPARISON: None HISTORY: Left-sided flank pain TECHNIQUE: Axial CT imaging at 5 mm intervals from lung bases through pubic symphysis without contras t. Coronal reformatted imaging obtained. FINDINGS: Lack of contrast media limits assessment of the viscera, bowel, vascular structures, and fo r lymphadenopathy. Imaged lung bases are unremarkable. No free intraperitoneal air noted. Cholecystectomy clips are present. The liver, spleen, pancreas, adrenal glands, and kidneys demonstrate no acute findings. There is no evidence for nephrolithiasis or obstructive uropathy on either side. Uterus appears surgically absent. Limited assessment of the bowel demonstrates diverticulosis of the descending colon with no evidence for diverticulitis. The appendix appears unremarkable. There is vacuum disc formation at L4-5. There is a right paracentral disc osteophyte complex at L5-S1 and there is probable disc bulge at L4-5. Lumbar spine degenerative change could be best assessed via follow-up lumbar spine MRI as clinically warranted. IMPRESSION: No nephrolithiasis or evidence of obstructive uropathy. Lumbar spine degenerative change, not optimally assessed on this exam. Recommend further assessment via lumbar spine MRI as clinically warranted..
== END 2019-07-11 09:39 | disposition home or self-care (01) ==
LOC: CT 09:38
PROVIDERS: ATTEND Family Medicine
DX: R10.9 Unspecified abdominal pain (principal)
CPT/HCPCS: 74176

== ENCOUNTER 2019-07-14 11:00 | Outpatient (CLI) | payer BC ==
--- NOTE | 2019-07-14 13:24 | MRI ---
MRI LUMBAR SPINE WITHOUT CONTRAST: Date: 07/14/19 COMPARISON: None. HISTORY: Constant left-sided flank pain. TECHNIQUE: Multiplanar, multisequence MR imaging of the lumbar spine obtained without contrast. FINDINGS: Sagittal STIR imaging demonstrates no focal area of osseous marrow edema. On the basis of five lumbar-type vertebral bodies, conus medullaris terminates at the T12-L1 level. No anterolisthesis or retrolisthesis noted within the lumbar spine. T12-L1: Intervertebral disc height and signal intensity within normal limits. Mild bilateral facet h ypertrophy. No central canal or neural foraminal stenosis. L1-2: Intervertebral disc height and signal intensity within normal limits. No significant central c anal or neural foraminal stenosis. L2-3: Minimal disc bulge. No central canal or neural foraminal stenosis. Mild bilateral facet hypert rophy. L3-4: There is mild disc desiccation and mild disc bulge with a small foraminal and post foraminal d isc protrusion on the left. No significant central canal or neural foraminal stenosis. L4-5: There is disc space narrowing with disc desiccation and disc bulge. There is a small superimpo sed left paracentral disc protrusion. No significant central canal stenosis or neural foraminal steno sis. Minimal left lateral recess stenosis. L5-S1: There is disc space narrowing and disc desiccation. There is an annular tear in the right par acentral region with a small associated disc protrusion in the right paracentral and right foraminal region. There is mild associated right neural foraminal stenosis and mild right lateral recess stenos is. No significant central canal or left neural foraminal stenosis. The imaged retroperitoneal struct ures appear grossly unremarkable. IMPRESSION: Lower lumbar spine degenerative disc disease as described above. POS: OFF
== END 2019-07-14 11:01 | disposition home or self-care (01) ==
LOC: SCSMRI 11:00
PROVIDERS: ATTEND Family Medicine
DX: M54.5 Low back pain (principal); M51.36 Other intervertebral disc degeneration, lumbar region
CPT/HCPCS: 72148

== ENCOUNTER 2019-10-27 09:40 | Outpatient (CLI) | payer BC ==
--- NOTE | 2019-10-27 10:33 | MMO ---
Bilateral MAMMO Bilat Screen [facility]. CLINICAL HISTORY: Patient is 59 years old and is seen for screening. The patient has no family history of breast cancer. The patient has no personal history of cancer. VIEWS: The views performed were: bilateral craniocaudal with tomosynthesis and bilateral mediolateral oblique with tomosynthesis. FILMS COMPARED: The present examination has been compared to prior imaging studies performed at [facility] on 04/09/2010 and 04/05/2018, at [facility] on 09/06/2015, and at [facility] on 01/07/2007. This study has been interpreted with the assistance of computer-aided detection. MAMMOGRAM FINDINGS: There are scattered fibroglandular densities. There are stable benign appearing calcifications seen in both breasts. There are no suspicious masses, suspicious calcifications, or new areas of architectural distortion. IMPRESSION: THERE IS NO MAMMOGRAPHIC EVIDENCE OF MALIGNANCY. A ROUTINE FOLLOW-UP MAMMOGRAM IN 1 YEAR IS RECOMMENDED. THE RESULTS OF THIS EXAM WERE SENT TO THE PATIENT. ACR BI-RADS Category 2 - Benign finding MAMMOGRAPHY NOTE: 1. A negative mammogram report should not delay a biopsy if a dominant of clinically suspicious mass is present. 2. Approximately 10% to 15% of breast cancers are not detected by mammography. 3. Adenosis and dense breasts may obscure an underlying neoplasm. Reported by: JESUS AL MD Electonically Signed: [id number]
== END 2019-10-27 09:41 | disposition home or self-care (01) ==
LOC: BICMAMMO 09:40
PROVIDERS: ATTEND Family Medicine
DX: Z12.31 Encounter for screening mammogram for malignant neoplasm of breast (principal)
CPT/HCPCS: 77063; 77067

== ENCOUNTER 2020-11-11 07:38 | Outpatient (CLI) | payer BC ==
--- NOTE | 2020-11-11 12:38 | NM ---
Radionucleotide gastric emptying scan HISTORY: Nausea. Abdomen pain. FINDINGS: Anterior images show persistent radiotracer in the gastric fundus. Distribution does not ch rocky significantly from image to image. Half life emptying calculated at 222 minutes. Time: Percent emptying 1 hour: 16% 2 hours: 27% 3 hours: 44% 4 hours: 50% IMPRESSION : Markedly delayed gastric emptying. Images suggestive of poor motility. Consider gastroparesis.
== END 2020-11-11 07:39 | disposition home or self-care (01) ==
LOC: NM 07:38
PROVIDERS: ATTEND Internal Medicine Gastroenterology
DX: R11.0 Nausea (principal); E11.9 Type 2 diabetes mellitus without complications; K30 Functional dyspepsia
CPT/HCPCS: 78264; A9541

== ENCOUNTER 2021-09-15 09:54 | Emergency (ER) | payer BC ==
[2021-09-15] MEDS ORDERED: Nitroglycerin 2% Ointment 1 INCH/1 GM Packet ONE (10:27)
[2021-09-15 10:43] LABS: #Eosinphils 0.1 thou/uL (0.0-0.7); #Lymphocytes 1.5 thou/uL (1.20-3.40); #Monocytes 0.6 thou/uL (0.11-0.59); #Neutrophils 3.6 thou/uL (1.40-6.50); %Basophils 0.7 % (0.0-1.0); %Eosinophils 2.5 % (0.0-10.0); %Lymphocytes 25.6 % (21.0-51.0); %Monocytes 10.8 % (0.0-10.0); %Neutrophils 60.5 % (42.0-75.0); Mean Corpuscular HGB CONC 32.3 g/dL (32.0-36.0); Mean Corpuscular Hemoglobin 26.8 pg (27.0-31.0); Mean Corpuscular Volume 82.8 fL (78.0-98.0); Mean Platelet Volume 9.5 fL (7.4-10.4); Platelet Count 236 thou/uL (130-400); RBC Distribution Width 13.4 % (11.5-14.5); Red Blood Cell (RBC) Count 3.75 mill/uL (4.20-5.40); White Blood Cell (WBC) Count 5.9 thou/uL (4.8-10.8)
[2021-09-15 11:01] LABS: ALT (SGPT) 19 U/L (8-55); AST (SGOT) 15 U/L (5-34); Albumin 3.5 g/dL (3.4-4.8); Alkaline Phosphatase 76 U/L (40-110); Anion Gap 12 mmol/L (10-20); BUN (Urea Nitrogen) 43 mg/dL (9.8-20.1); Bilirubin, Total 0.2 mg/dL (0.2-1.2); Calc. Creatinine Clearance 0 mL/min (70-130); Calcium 9.4 mg/dL (7.8-10.44); Carbon Dioxide 23 mmol/L (23-31); Chloride 111 mmol/L (98-107); Globulin 2.8 g/dL (2.4-3.5); Glucose 156 mg/dL (80-115); Lipase 30 U/L (8-78); Potassium 4.1 mmol/L (3.5-5.1); Protein, Total 6.3 g/dL (5.8-8.1); Sodium 142 mmol/L (136-145)
[2021-09-15 11:23] LABS: CKMB 2.5 ng/mL (0-6.6)
== END 2021-09-15 16:55 | disposition home or self-care (01) ==
LOC: ERS 09:54
DX: R07.9 Chest pain, unspecified (principal); Z79.82 Long term (current) use of aspirin; Z79.899 Other long term (current) drug therapy
CPT/HCPCS: 36415; 71045; 80053; 82553; 83690; 84484; 85025; 93005

== ENCOUNTER 2021-11-06 11:32 | Outpatient (CLI) | payer BC | END 2021-11-06 11:33 | disposition home or self-care (01) | LOC: BICRAD 11:32 | PROVIDERS: ATTEND Internal Medicine Nephrology | DX: N18.5 Chronic kidney disease, stage 5 (principal) | CPT/HCPCS: 71046 ==

== ENCOUNTER 2022-08-17 06:06 | Emergency (ER) | payer BC ==
[2022-08-17 07:10] LABS: #Eosinphils 0.2 thou/uL (0.0-0.7); #Lymphocytes 2.7 thou/uL (1.20-3.40); #Monocytes 0.7 thou/uL (0.11-0.59); #Neutrophils 4.2 thou/uL (1.40-6.50); %Basophils 0.6 % (0.0-1.0); %Eosinophils 2.2 % (0.0-10.0); %Lymphocytes 34.5 % (21.0-51.0); %Monocytes 8.6 % (0.0-10.0); %Neutrophils 54.1 % (42.0-75.0); Hemoglobin 10.9 g/dL (12.0-16.0); Mean Corpuscular HGB CONC 30.5 g/dL (32.0-36.0); Mean Corpuscular Hemoglobin 26.8 pg (27.0-31.0); Mean Corpuscular Volume 87.9 fl (78.0-98.0); Mean Platelet Volume 9.8 fL (7.4-10.4); Platelet Count 246 thou/uL (130-400); RBC Distribution Width 15.8 % (11.5-14.5); Red Blood Cell (RBC) Count 4.07 mill/uL (4.20-5.40); White Blood Cell (WBC) Count 7.7 thou/uL (4.8-10.8)
[2022-08-17 07:31] LABS: PTT 26.9 sec (22.9-36.1); Prothrombin Time 12.8 sec (12.0-14.7)
[2022-08-17 07:32] LABS: ALT (SGPT) 21 U/L (8-55); AST (SGOT) 15 U/L (5-34); Albumin 3.7 g/dL (3.4-4.8); Alkaline Phosphatase 95 U/L (40-110); Anion Gap 15 mmol/L (10-20); BUN (Urea Nitrogen) 47 mg/dL (9.8-20.1); Bilirubin, Total 0.2 mg/dL (0.2-1.2); Calc. Creatinine Clearance 0 mL/min (70-130); Calcium 8.9 mg/dL (7.8-10.44); Carbon Dioxide 21 mmol/L (23-31); Chloride 111 mmol/L (98-107); Estimated GFR 8; Globulin 3.2 g/dL (2.4-3.5); Glucose 101 mg/dL (80-115); Potassium 4.5 mmol/L (3.5-5.1); Protein, Total 6.9 g/dL (5.8-8.1); Sodium 142 mmol/L (136-145)
== END 2022-08-17 15:54 | disposition home or self-care (01) ==
LOC: ERS 06:06
DX: T82.590A Other mechanical complication of surgically created arteriovenous fistula, initial encounter (principal); N18.6 End stage renal disease; E11.22 Type 2 diabetes mellitus with diabetic chronic kidney disease; I10 Essential (primary) hypertension; E78.5 Hyperlipidemia, unspecified; Z99.2 Dependence on renal dialysis; Z79.899 Other long term (current) drug therapy; Z79.4 Long term (current) use of insulin
CPT/HCPCS: 36415; 80053; 85025; 85610; 85730; 90935; 99284; G0257

== ENCOUNTER 2023-08-12 10:17 | Outpatient (CLI) | payer BC | END 2023-08-12 10:18 | disposition home or self-care (01) | LOC: BICRAD 10:17 | PROVIDERS: ATTEND Nurse Practitioner Family | DX: M25.551 Pain in right hip (principal); M25.552 Pain in left hip ==

== ENCOUNTER 2024-06-23 08:07 | Observation (INO) | payer BC ==
[2024-06-23 08:49] LABS: #Basophils 0.06 10x3/uL (0.0-0.2); %Basophils 0.7 % (0.0-1.0); %Eosinophils 1.5 % (0.0-10.0); %Lymphocytes 10.3 % (21.0-51.0); %Monocytes 9.3 % (0.0-10.0); %Neutrophils 77.5 % (42.0-75.0); Hematocrit 35.7 % (36.0-47.0); Hemoglobin 10.4 g/dL (12.0-16.0); Mean Corpuscular HGB CONC 29.1 g/dL (32.0-36.0); Mean Corpuscular Hemoglobin 27.2 pg (27.0-31.0); Mean Corpuscular Volume 93.5 fL (78.0-98.0); Mean Platelet Volume 11.2 fL (7.4-10.4); Platelet Count 205 10x3/uL (130-400); RBC Distribution Width 21.5 % (11.5-14.5); Red Blood Cell (RBC) Count 3.82 mill/uL (4.20-5.40)
[2024-06-23 09:04] LABS: PTT 26.7 sec (22.9-36.1); Prothrombin Time 13.1 sec (12.0-14.7)
[2024-06-23 09:16] LABS: ALT (SGPT) 24 U/L (8-55); AST (SGOT) 27 U/L (5-34); Albumin 3.5 g/dL (3.4-4.8); Alkaline Phosphatase 88 U/L (40-110); Anion Gap 21 mmol/L (10-20); BUN (Urea Nitrogen) 25 mg/dL (9.8-20.1); Bilirubin, Total 0.3 mg/dL (0.2-1.2); Calc. Creatinine Clearance 0 mL/min (70-130); Calcium 9.8 mg/dL (7.8-10.44); Carbon Dioxide 26 mmol/L (23-31); Chloride 100 mmol/L (98-107); Estimated GFR 7; Glucose 171 mg/dL (80-115); Potassium 3.6 mmol/L (3.5-5.1); Protein, Total 7.5 g/dL (5.8-8.1); Sodium 143 mmol/L (136-145)
[2024-06-23 09:24] LABS: Troponin I 0.059 ng/mL (< 0.028)
[2024-06-23] MEDS ORDERED: Ondansetron PF 4 MG/2 ML Vial IVP PRN (09:30)
[2024-06-23] MEDS ORDERED: Acetaminophen 325 MG TAB PO PRN (09:30)
[2024-06-23] MEDS ORDERED: Senokot S 8.6-50 MG TAB PO PRN (09:30)
[2024-06-23] MEDS ORDERED: Calcium Carbonate 500 MG ChewTAB PO PRN (09:30)
[2024-06-23] MEDS ORDERED: oxyCODONE 5 MG TAB PO PRN (09:34)
[2024-06-23] MEDS ORDERED: Dextrose 50% Abboject 50 ML SYRINGE SLOW IVP PRN (09:35)
[2024-06-23] MEDS ORDERED: Glucagon 1 MG/ML KIT IM PRN (09:35)
[2024-06-23] MEDS ORDERED: Insulin Lispro 100 UNIT/ML 10 ML VIAL SC PRN ×2 (09:35)
[2024-06-23] MEDS ORDERED: Dextrose 5% in Water 1,000 ML IV PRN (09:35)
[2024-06-23 14:34] LABS: Troponin I 0.076 ng/mL (< 0.028)
[2024-06-23 15:14] VITALS: BMI 36.1
[2024-06-23 15:17] LABS: Troponin I 0.067 ng/mL (< 0.028)
[2024-06-23 16:54] VITALS: BP 140/65; TEMP 98.5
[2024-06-23] MEDS ORDERED: Non-Formulary Item 1 EACH (Trazodone Hcl [Trazodone Hcl] 100 MG Tablet) PO SCH (21:00)
[2024-06-23] MEDS ORDERED: Non-Formulary Item 1 EACH (Mirtazapine [Mirtazapine] 7.5 MG Tablet) PO SCH (21:00)
[2024-06-23] MEDS ORDERED: Atorvastatin Calcium 40 MG TAB PO SCH (21:00)
[2024-06-23] MEDS ORDERED: Mirtazapine 15 MG TAB PO SCH (21:00)
[2024-06-23] MEDS ORDERED: Insulin Glargine 30 UNITS/0.3 ML VIAL SC SCH (21:00)
[2024-06-23] MEDS ORDERED: Non-Formulary Item 1 EACH (Insulin Glargine,Hum.Rec.Anlog [Toujeo Solostar] 300 UNIT/ML I SC SCH (21:00)
[2024-06-23] MEDS ORDERED: Apixaban 5 MG TAB PO SCH (21:00)
[2024-06-23] MEDS ORDERED: Non-Formulary Item 1 EACH (Atorvastatin Calcium [Lipitor] 80 MG Tablet) PO SCH (21:00)
[2024-06-23] MEDS ORDERED: traZODone HCl 50 MG TAB PO SCH (21:00)
[2024-06-24] MEDS ORDERED: FLUoxetine HCl 20 MG CAP PO SCH (09:00)
[2024-06-26] MEDS ORDERED: Calcitriol 0.25 MCG CAP PO SCH (09:00)
== END 2024-06-23 17:52 | disposition home or self-care (01) ==
LOC: SUATTDRO 08:07 → ERS 08:07 → ERHOLD 09:41
PROVIDERS: ADMIT Internal Medicine; ATTEND Internal Medicine
DX: R07.9 Chest pain, unspecified (principal)
CPT/HCPCS: 36416; 71045; 80053; 83690; 83880; 84484; 85025; 85610; 85730; 93005; 94760; G0378

== ENCOUNTER 2024-07-19 13:00 | Outpatient (CLI) | payer BC | END 2024-07-19 13:01 | disposition home or self-care (01) | LOC: BICCT 13:00 | PROVIDERS: ATTEND Nurse Practitioner Family | DX: M48.062 Spinal stenosis, lumbar region with neurogenic claudication (principal); M47.816 Spondylosis without myelopathy or radiculopathy, lumbar region | CPT/HCPCS: 72131 ==

== ENCOUNTER 2024-08-11 11:13 | Outpatient (CLI) | payer BC | END 2024-08-11 11:14 | disposition home or self-care (01) | LOC: SCSRAD 11:13 | DX: R06.00 Dyspnea, unspecified (principal) | CPT/HCPCS: 71046 ==

== ENCOUNTER 2024-09-21 10:56 | Outpatient (CLI) | payer BC | END 2024-09-21 10:57 | disposition home or self-care (01) | LOC: SCSMRI 10:56 | PROVIDERS: ATTEND Psychiatry & Neurology Neurology | DX: R41.3 Other amnesia (principal); I67.89 Other cerebrovascular disease; G93.89 Other specified disorders of brain | CPT/HCPCS: 70551 ==

== ENCOUNTER 2024-11-09 16:43 | Observation (INO) | payer BC ==
[2024-11-09 20:08] LABS: #Basophils 0.04 10x3/uL (0.0-0.2); #Eosinophils Less than 0.03 10x3/uL (0.0-0.7); %Basophils 0.3 % (0.0-1.0); %Eosinophils 0.1 % (0.0-10.0); %Lymphocytes 4.5 % (21.0-51.0); %Monocytes 5.2 % (0.0-10.0); %Neutrophils 89.3 % (42.0-75.0); Hematocrit 36.3 % (36.0-47.0); Mean Corpuscular HGB CONC 30.3 g/dL (32.0-36.0); Mean Corpuscular Hemoglobin 28.6 pg (27.0-31.0); Mean Corpuscular Volume 94.3 fL (78.0-98.0); Platelet Count 235 10x3/uL (130-400); RBC Distribution Width 20.1 % (11.5-14.5); Red Blood Cell (RBC) Count 3.85 mill/uL (4.20-5.40)
[2024-11-09 20:22] LABS: ALT (SGPT) 19 U/L (Less than 34); AST (SGOT) 22 U/L (11-34); Albumin 3.4 g/dL (3.1-4.5); Alkaline Phosphatase 79 U/L (40-110); Anion Gap 23 mmol/L (10-20); BUN (Urea Nitrogen) 82 mg/dL (9.8-20.1); Bilirubin, Total 0.2 mg/dL (0.3-1.2); Calc. Creatinine Clearance 0 mL/min (70-130); Calcium 8.7 mg/dL (7.8-10.44); Carbon Dioxide 17 mmol/L (23-31); Chloride 112 mmol/L (98-107); Estimated GFR 3; Globulin 3.9 g/dL (2.4-3.5); Glucose 347 mg/dL (80-115); Magnesium 2.1 mg/dL (1.6-2.6); Potassium 5.9 mmol/L (3.5-5.1); Protein, Total 7.3 g/dL (5.8-8.1); Sodium 146 mmol/L (136-145)
[2024-11-09 20:28] LABS: Troponin I 0.188 ng/mL (< 0.028)
[2024-11-09] MEDS ORDERED: HYDROcodone/Acetaminophen 7.5/325 mg Tablet ONE (21:14)
[2024-11-09] MEDS ORDERED: Insulin Regular, Human 100 UNIT/ML 10 ML VIAL ONE (22:20)
[2024-11-09] MEDS ORDERED: Dextrose 10% in Water 250 ML ONE (22:20)
[2024-11-09] MEDS ORDERED: Sodium Bicarb 50 MEQ/50 ML Abboject 8.4% SYRINGE ONE (22:20)
[2024-11-09] MEDS ORDERED: CALCIUM GLUC 1 GM/NS 50 ML IV Bag ONE (22:22)
[2024-11-09] MEDS ORDERED: Ondansetron PF 4 MG/2 ML Vial IVP PRN (22:30)
[2024-11-09] MEDS ORDERED: Ondansetron ODT 4 MG TAB SL PRN (22:30)
[2024-11-09] MEDS ORDERED: Acetaminophen 325 MG TAB PO PRN (22:30)
[2024-11-09 23:19] LABS: HBSAB Concentration 491.77 mIU/mL; HBsAg Index 0.21 S/CO (0-0.99); Hep B Core Total Ab NONREACTIVE (NonReactive); Hep B Core Total Index 0.09 S/CO (0-0.79); Hep B Surf AB REACTIVE (NonReactive); Hep B Surf Ag NONREACTIVE S/CO (NonReactive); Hep C IgG Ab NONREACTIVE S/CO (NonReactive); Hep C Index 0.13 S/CO (0-0.79)
[2024-11-10] MEDS ORDERED: Glucagon 1 MG/ML KIT IM PRN (00:43)
[2024-11-10] MEDS ORDERED: Dextrose 50% Abboject 50 ML SYRINGE SLOW IVP PRN (00:43)
[2024-11-10] MEDS ORDERED: Insulin Lispro 100 UNIT/ML 10 ML VIAL SC PRN (00:43)
[2024-11-10] MEDS ORDERED: Dextrose 5% in Water 1,000 ML IV PRN (00:43)
[2024-11-10] MEDS ORDERED: Calcium Carbonate 500 MG ChewTAB PO PRN (00:43)
[2024-11-10] MEDS ORDERED: Acetaminophen 650 MG Suppository PR PRN (00:43)
[2024-11-10] MEDS ORDERED: Acetaminophen 325 MG TAB PO PRN (00:43)
[2024-11-10] MEDS ORDERED: Ondansetron ODT 4 MG TAB PO PRN (00:43)
[2024-11-10] MEDS ORDERED: Ondansetron PF 4 MG/2 ML Vial IVP PRN (00:43)
[2024-11-10 03:57] VITALS: BMI 37.6
[2024-11-10] MEDS: Insulin Lispro 100 UNIT/ML 10 ML VIAL SC PRN (05:12)
[2024-11-10 05:23] LABS: #Basophils 0.06 10x3/uL (0.0-0.2); %Basophils 0.5 % (0.0-1.0); %Eosinophils 0.9 % (0.0-10.0); %Lymphocytes 11.3 % (21.0-51.0); %Monocytes 8.5 % (0.0-10.0); %Neutrophils 78.4 % (42.0-75.0); Hematocrit 35.1 % (36.0-47.0); Hemoglobin 10.5 g/dL (12.0-16.0); Mean Corpuscular HGB CONC 29.9 g/dL (32.0-36.0); Mean Corpuscular Hemoglobin 28.1 pg (27.0-31.0); Mean Corpuscular Volume 93.9 fL (78.0-98.0); Mean Platelet Volume 11.5 fL (7.4-10.4); Platelet Count 215 10x3/uL (130-400); RBC Distribution Width 20.1 % (11.5-14.5); Red Blood Cell (RBC) Count 3.74 mill/uL (4.20-5.40)
[2024-11-10 06:24] LABS: Anion Gap 21 mmol/L (10-20); BUN (Urea Nitrogen) 47 mg/dL (9.8-20.1); Calc. Creatinine Clearance 9 mL/min (70-130); Calcium 8.6 mg/dL (7.8-10.44); Carbon Dioxide 22 mmol/L (23-31); Chloride 105 mmol/L (98-107); Estimated GFR 4; Glucose 224 mg/dL (80-115); Potassium 4.2 mmol/L (3.5-5.1); Sodium 144 mmol/L (136-145)
[2024-11-10 07:33] VITALS: BP 175/84; TEMP 98.6
[2024-11-10] MEDS ORDERED: HYDROcodone/Acetaminophen 5/325 mg Tablet PO PRN (08:06)
[2024-11-10] MEDS: FLUoxetine HCl 20 MG CAP PO SCH (10:02)
[2024-11-10] MEDS: Calcitriol 0.25 MCG CAP PO SCH (10:02)
[2024-11-10] MEDS: Gabapentin 100 MG CAP PO SCH (10:03)
[2024-11-10] MEDS: Famotidine/PF 20 mg/2ml Vial SLOW IVP SCH (10:03)
[2024-11-10] MEDS: Famotidine 20 MG TAB PO SCH (10:03)
[2024-11-10] MEDS ORDERED: Heparin 10,000 UNITS/ 10 ML VIAL ONE ×2 (10:28→13:30)
[2024-11-10] MEDS: Apixaban 5 MG TAB PO SCH (12:38)
[2024-11-10] MEDS: Insulin Lispro 100 UNIT/ML 10 ML VIAL SC SCH (12:38)
[2024-11-10] MEDS ORDERED: Atorvastatin Calcium 40 MG TAB PO SCH (21:00)
[2024-11-10] MEDS ORDERED: Gabapentin 100 MG CAP PO SCH (21:00)
[2024-11-10] MEDS ORDERED: Insulin Glargine 30 UNITS/0.3 ML VIAL SC SCH (21:00)
== END 2024-11-10 13:35 | disposition home or self-care (01) ==
LOC: ERS 16:43 → OBS 22:16
PROVIDERS: ADMIT Student in an Organized Health Care Education/Training Program; ATTEND Internal Medicine
DX: I12.0 Hypertensive chronic kidney disease with stage 5 chronic kidney disease or end stage renal disease (principal); N18.6 End stage renal disease; I25.10 Atherosclerotic heart disease of native coronary artery without angina pectoris; I21.4 Non-ST elevation (NSTEMI) myocardial infarction; E11.22 Type 2 diabetes mellitus with diabetic chronic kidney disease; E78.5 Hyperlipidemia, unspecified; D63.1 Anemia in chronic kidney disease; Z99.2 Dependence on renal dialysis; Z90.49 Acquired absence of other specified parts of digestive tract; Z90.710 Acquired absence of both cervix and uterus; Z88.8 Allergy status to other drugs, medicaments and biological substances; Z88.1 Allergy status to other antibiotic agents; Z79.4 Long term (current) use of insulin; Z79.01 Long term (current) use of anticoagulants; Z79.899 Other long term (current) drug therapy
CPT/HCPCS: 36415; 36416; 71045; 80048; 80053; 83735; 83880; 84484; 85025; 86704; 86706; 86803; 87340; 90935; 93005; 94760; G0257; G0378; J0613; J1644; J1815

== ENCOUNTER 2025-07-06 08:25 | Inpatient (IN) | payer MEDICARE, BC ==
[2025-07-05 13:27] VITALS: BMI 37.2
[2025-07-06 09:16] LABS: Potassium 5.9 mmol/L (3.5-5.1)
[2025-07-06] MEDS ORDERED: Dextrose 50% Abboject 50 ML SYRINGE SLOW IVP PRN (13:51)
[2025-07-06] MEDS ORDERED: Glucagon 1 MG/ML KIT IM PRN (13:51)
[2025-07-06] MEDS ORDERED: Acetaminophen 325 MG TAB PO PRN (13:51)
[2025-07-06] MEDS: Heparin 10,000 UNITS/ 10 ML VIAL CATH SCH (18:00)
[2025-07-06] MEDS: Heparin 5,000 UNITS/ML VIAL SC SCH (20:40)
[2025-07-06 20:57] LABS: Anion Gap 19 mmol/L (10-20); BUN (Urea Nitrogen) 62 mg/dL (9.8-20.1); Calc. Creatinine Clearance 8 mL/min (70-130); Calcium 8.9 mg/dL (7.8-10.44); Carbon Dioxide 20 mmol/L (23-31); Chloride 107 mmol/L (98-107); Glucose 195 mg/dL (80-115); Potassium 4.6 mmol/L (3.5-5.1); Sodium 141 mmol/L (136-145)
[2025-07-06] MEDS: Gabapentin 100 MG CAP PO SCH (20:59)
[2025-07-06] MEDS: Mirtazapine 15 MG TAB PO SCH (21:01)
[2025-07-06] MEDS ORDERED: NIFEdipine XL 30 MG ER.TAB PO SCH (21:30)
[2025-07-06] MEDS: NIFEdipine XL 60 MG ER.TAB PO SCH (21:51)
[2025-07-07 07:04] LABS: #Basophils 0.03 10x3/uL (0.0-0.2); #Eosinophils 0.24 10x3/uL (0.0-0.7); #Monocytes 0.74 10x3/uL (0.11-0.59); #Neutrophils 4.62 10x3/uL (1.40-6.50); %Basophils 0.4 % (0.0-1.0); %Eosinophils 3.6 % (0.0-10.0); %Lymphocytes 15.8 % (21.0-51.0); %Monocytes 11.0 % (0.0-10.0); %Neutrophils 68.9 % (42.0-75.0); Hematocrit 37.3 % (36.0-47.0); Hemoglobin 11.1 g/dL (12.0-16.0); Mean Corpuscular Hemoglobin 26.0 pg (27.0-31.0); Mean Corpuscular Volume 87.4 fL (78.0-98.0); Platelet Count 200 10x3/uL (130-400); Red Blood Cell (RBC) Count 4.27 mill/uL (4.20-5.40); White Blood Cell (WBC) Count 6.71 10x3/uL (4.8-10.8)
[2025-07-07 07:21] LABS: ALT (SGPT) 22 U/L (Less than 34); AST (SGOT) 18 U/L (11-34); Albumin 3.1 g/dL (3.1-4.5); Alkaline Phosphatase 83 U/L (40-110); Anion Gap 18 mmol/L (10-20); BUN (Urea Nitrogen) 75 mg/dL (9.8-20.1); Bilirubin, Total 0.3 mg/dL (0.3-1.2); Calc. Creatinine Clearance 8 mL/min (70-130); Calcium 8.2 mg/dL (7.8-10.44); Carbon Dioxide 18 mmol/L (23-31); Chloride 109 mmol/L (98-107); Globulin 3.5 g/dL (2.4-3.5); Glucose 245 mg/dL (80-115); Potassium 5.2 mmol/L (3.5-5.1); Sodium 140 mmol/L (136-145)
[2025-07-07] MEDS ORDERED: NIFEdipine XL 30 MG ER.TAB PO SCH ×2 (09:00)
[2025-07-07] MEDS ORDERED: NIFEdipine XL 60 MG ER.TAB PO SCH ×2 (09:00→21:00)
[2025-07-07] MEDS: Ezetimibe 10 MG TAB PO SCH (16:29)
[2025-07-07] MEDS: NIFEdipine XL 60 MG ER.TAB PO SCH ×2 (19:27→20:35)
[2025-07-07] MEDS: diphenhydrAMINE 25 MG CAP PO SCH (20:51)
[2025-07-07] MEDS: Insulin Glargine 30 UNITS/0.3 ML VIAL SC SCH (20:51)
[2025-07-08 06:42] LABS: Anion Gap 19 mmol/L (10-20); BUN (Urea Nitrogen) 43 mg/dL (9.8-20.1); Calc. Creatinine Clearance 11 mL/min (70-130); Calcium 8.2 mg/dL (7.8-10.44); Carbon Dioxide 23 mmol/L (23-31); Chloride 101 mmol/L (98-107); Glucose 214 mg/dL (80-115); Potassium 4.1 mmol/L (3.5-5.1); Sodium 139 mmol/L (136-145)
[2025-07-08 06:49] LABS: #Basophils 0.03 10x3/uL (0.0-0.2); #Eosinophils 0.20 10x3/uL (0.0-0.7); #Monocytes 0.80 10x3/uL (0.11-0.59); #Neutrophils 2.74 10x3/uL (1.40-6.50); %Basophils 0.6 % (0.0-1.0); %Eosinophils 3.7 % (0.0-10.0); %Lymphocytes 29.5 % (21.0-51.0); %Monocytes 14.9 % (0.0-10.0); %Neutrophils 51.1 % (42.0-75.0); Hematocrit 34.1 % (36.0-47.0); Hemoglobin 10.3 g/dL (12.0-16.0); Mean Corpuscular Hemoglobin 26.1 pg (27.0-31.0); Mean Corpuscular Volume 86.3 fL (78.0-98.0); Platelet Count 146 10x3/uL (130-400); Red Blood Cell (RBC) Count 3.95 mill/uL (4.20-5.40); White Blood Cell (WBC) Count 5.36 10x3/uL (4.8-10.8)
[2025-07-08] MEDS: Insulin Glargine 30 UNITS/0.3 ML VIAL SC SCH (08:47)
[2025-07-09 06:35] LABS: Anion Gap 21 mmol/L (10-20); BUN (Urea Nitrogen) 61 mg/dL (9.8-20.1); Calc. Creatinine Clearance 8 mL/min (70-130); Calcium 8.6 mg/dL (7.8-10.44); Carbon Dioxide 21 mmol/L (23-31); Chloride 102 mmol/L (98-107); Glucose 167 mg/dL (80-115); Potassium 4.2 mmol/L (3.5-5.1); Sodium 140 mmol/L (136-145)
[2025-07-09 06:42] LABS: #Basophils 0.04 10x3/uL (0.0-0.2); #Eosinophils 0.28 10x3/uL (0.0-0.7); #Monocytes 0.81 10x3/uL (0.11-0.59); #Neutrophils 3.68 10x3/uL (1.40-6.50); %Basophils 0.6 % (0.0-1.0); %Eosinophils 4.3 % (0.0-10.0); %Lymphocytes 25.8 % (21.0-51.0); %Monocytes 12.4 % (0.0-10.0); %Neutrophils 56.6 % (42.0-75.0); Hematocrit 34.9 % (36.0-47.0); Hemoglobin 10.4 g/dL (12.0-16.0); Mean Corpuscular Hemoglobin 25.7 pg (27.0-31.0); Mean Corpuscular Volume 86.2 fL (78.0-98.0); Platelet Count 194 10x3/uL (130-400); Red Blood Cell (RBC) Count 4.05 mill/uL (4.20-5.40); White Blood Cell (WBC) Count 6.51 10x3/uL (4.8-10.8)
[2025-07-09] MEDS: Calcitriol 0.25 MCG CAP PO SCH (09:36)
[2025-07-09] MEDS: EPOETIN ALFA-EPBX (ESRD) 10,000 UNITS/ML VIAL SC SCH (13:17)
[2025-07-09] MEDS: EPOETIN ALFA-EPBX (ESRD) 10,000 UNITS/ML VIAL IVP SCH (19:15)
[2025-07-10] MEDS: diphenhydrAMINE 25 MG CAP PO PRN (01:18)
[2025-07-10 05:42] LABS: Anion Gap 18 mmol/L (10-20); BUN (Urea Nitrogen) 47 mg/dL (9.8-20.1); Calc. Creatinine Clearance 10 mL/min (70-130); Calcium 8.5 mg/dL (7.8-10.44); Carbon Dioxide 22 mmol/L (23-31); Chloride 99 mmol/L (98-107); Glucose 327 mg/dL (80-115); Potassium 3.9 mmol/L (3.5-5.1); Sodium 135 mmol/L (136-145)
[2025-07-10 05:50] LABS: #Basophils 0.05 10x3/uL (0.0-0.2); #Eosinophils 0.23 10x3/uL (0.0-0.7); #Monocytes 0.87 10x3/uL (0.11-0.59); #Neutrophils 4.58 10x3/uL (1.40-6.50); %Basophils 0.7 % (0.0-1.0); %Eosinophils 3.2 % (0.0-10.0); %Lymphocytes 20.9 % (21.0-51.0); %Monocytes 12.0 % (0.0-10.0); %Neutrophils 62.9 % (42.0-75.0); Hematocrit 32.4 % (36.0-47.0); Hemoglobin 9.6 g/dL (12.0-16.0); Mean Corpuscular Hemoglobin 26.0 pg (27.0-31.0); Mean Corpuscular Volume 87.8 fL (78.0-98.0); Platelet Count 149 10x3/uL (130-400); Red Blood Cell (RBC) Count 3.69 mill/uL (4.20-5.40); White Blood Cell (WBC) Count 7.27 10x3/uL (4.8-10.8)
[2025-07-10] MEDS: Insulin Glargine 30 UNITS/0.3 ML VIAL SC SCH (21:00)
[2025-07-11 06:17] LABS: Anion Gap 18 mmol/L (10-20); BUN (Urea Nitrogen) 57 mg/dL (9.8-20.1); Calc. Creatinine Clearance 8 mL/min (70-130); Calcium 8.6 mg/dL (7.8-10.44); Carbon Dioxide 21 mmol/L (23-31); Chloride 103 mmol/L (98-107); Glucose 193 mg/dL (80-115); Potassium 4.3 mmol/L (3.5-5.1); Sodium 138 mmol/L (136-145)
[2025-07-11 06:50] LABS: #Basophils 0.05 10x3/uL (0.0-0.2); #Eosinophils 0.30 10x3/uL (0.0-0.7); #Monocytes 0.99 10x3/uL (0.11-0.59); #Neutrophils 5.24 10x3/uL (1.40-6.50); %Basophils 0.6 % (0.0-1.0); %Eosinophils 3.6 % (0.0-10.0); %Lymphocytes 20.2 % (21.0-51.0); %Monocytes 12.0 % (0.0-10.0); %Neutrophils 63.4 % (42.0-75.0); Hematocrit 31.0 % (36.0-47.0); Hemoglobin 9.4 g/dL (12.0-16.0); Mean Corpuscular Hemoglobin 26.1 pg (27.0-31.0); Mean Corpuscular Volume 86.1 fL (78.0-98.0); Platelet Count 167 10x3/uL (130-400); Red Blood Cell (RBC) Count 3.60 mill/uL (4.20-5.40); White Blood Cell (WBC) Count 8.27 10x3/uL (4.8-10.8)
[2025-07-11] MEDS ORDERED: PROPOFOL 20 ML ONE (17:38)
[2025-07-11] MEDS ORDERED: Ondansetron PF 4 MG/2 ML Vial ONE (17:40)
[2025-07-11] MEDS ORDERED: Rocuronium Bromide 10 MG/ML (10ML VIAL) ONE (17:40)
[2025-07-11] MEDS ORDERED: Lidocaine 1% PF 5 ML VIAL ONE (17:40)
[2025-07-11] MEDS ORDERED: CEFAZOLIN 2 GM VIAL ONE (18:03)
[2025-07-11] MEDS ORDERED: SUCCINYLCHOLINE/SOD CL,ISO/PF 200 MG/10 ML SYRINGE FS ONE (18:26)
[2025-07-11] MEDS ORDERED: Bupivacaine 0.25% HCL 30 ML VIAL ONE (18:36)
[2025-07-11] MEDS ORDERED: Heparin 5,000 UNITS/ML VIAL ONE (18:37)
[2025-07-11] MEDS ORDERED: Heparin 10,000 UNITS/ 10 ML VIAL ONE ×2 (18:37→18:50)
[2025-07-11] MEDS ORDERED: PHENYLEPHRINE-NS 100 MCG/ML 10 ML SYRINGE ONE (19:03)
[2025-07-11] MEDS ORDERED: Glycopyrrolate 0.2 MG/ML 5 ML SYRINGE ONE (19:14)
[2025-07-11] MEDS ORDERED: SUGAMMADEX SODIUM 200 MG/2 ML VIAL ONE (19:37)
[2025-07-11] MEDS ORDERED: Ondansetron PF 4 MG/2 ML Vial IVP PRN (20:52)
[2025-07-11] MEDS: HYDROcodone/Acetaminophen 5/325 mg Tablet PO PRN (21:10)
[2025-07-12 07:03] LABS: #Basophils 0.05 10x3/uL (0.0-0.2); #Eosinophils 0.22 10x3/uL (0.0-0.7); #Monocytes 0.95 10x3/uL (0.11-0.59); #Neutrophils 6.41 10x3/uL (1.40-6.50); %Basophils 0.5 % (0.0-1.0); %Eosinophils 2.4 % (0.0-10.0); %Lymphocytes 18.1 % (21.0-51.0); %Monocytes 10.2 % (0.0-10.0); %Neutrophils 68.6 % (42.0-75.0); Hematocrit 33.1 % (36.0-47.0); Hemoglobin 9.7 g/dL (12.0-16.0); Mean Corpuscular Hemoglobin 25.9 pg (27.0-31.0); Mean Corpuscular Volume 88.3 fL (78.0-98.0); Platelet Count 156 10x3/uL (130-400); Red Blood Cell (RBC) Count 3.75 mill/uL (4.20-5.40); White Blood Cell (WBC) Count 9.34 10x3/uL (4.8-10.8)
[2025-07-12 07:20] LABS: Anion Gap 18 mmol/L (10-20); BUN (Urea Nitrogen) 33 mg/dL (9.8-20.1); Calc. Creatinine Clearance 11 mL/min (70-130); Calcium 9.1 mg/dL (7.8-10.44); Carbon Dioxide 19 mmol/L (23-31); Chloride 104 mmol/L (98-107); Glucose 209 mg/dL (80-115); Potassium 4.5 mmol/L (3.5-5.1); Sodium 136 mmol/L (136-145)
[2025-07-12] MEDS: Famotidine 20 MG TAB PO SCH (21:49)
[2025-07-13 06:02] LABS: #Basophils 0.06 10x3/uL (0.0-0.2); #Eosinophils 0.34 10x3/uL (0.0-0.7); #Monocytes 1.06 10x3/uL (0.11-0.59); #Neutrophils 5.05 10x3/uL (1.40-6.50); %Basophils 0.7 % (0.0-1.0); %Eosinophils 4.0 % (0.0-10.0); %Lymphocytes 23.4 % (21.0-51.0); %Monocytes 12.4 % (0.0-10.0); %Neutrophils 59.3 % (42.0-75.0); Hematocrit 34.3 % (36.0-47.0); Hemoglobin 9.8 g/dL (12.0-16.0); Mean Corpuscular Hemoglobin 25.9 pg (27.0-31.0); Mean Corpuscular Volume 90.5 fL (78.0-98.0); Platelet Count 175 10x3/uL (130-400); Red Blood Cell (RBC) Count 3.79 mill/uL (4.20-5.40); White Blood Cell (WBC) Count 8.53 10x3/uL (4.8-10.8)
[2025-07-13 06:16] LABS: Anion Gap 21 mmol/L (10-20); BUN (Urea Nitrogen) 47 mg/dL (9.8-20.1); Calc. Creatinine Clearance 8 mL/min (70-130); Calcium 9.0 mg/dL (7.8-10.44); Carbon Dioxide 19 mmol/L (23-31); Chloride 104 mmol/L (98-107); Glucose 258 mg/dL (80-115); Potassium 4.7 mmol/L (3.5-5.1); Sodium 139 mmol/L (136-145)
[2025-07-13] MEDS: Insulin Glargine 30 UNITS/0.3 ML VIAL SC SCH (08:20)
[2025-07-13] MEDS: Calcium Carbonate 500 MG ChewTAB PO PRN (19:51)
[2025-07-13 23:46] VITALS: BMI 37.2
[2025-07-14] MEDS: Senokot S 8.6-50 MG TAB PO PRN (09:37)
[2025-07-14] MEDS: Bisacodyl 10 MG SUPP PR PRN (09:53)
[2025-07-14] MEDS ORDERED: Mineral Oil ENEMA PR PRN (11:46)
[2025-07-14] MEDS: Milk Of Magnesia 30 ML UDCUP PO PRN (12:44)
[2025-07-14] MEDS: Senokot S 8.6-50 MG TAB PO SCH (20:53)
[2025-07-15] MEDS: Insulin Glargine 30 UNITS/0.3 ML VIAL SC SCH ×2 (09:05→21:15)
[2025-07-16 07:05] LABS: #Basophils 0.05 10x3/uL (0.0-0.2); #Eosinophils 0.32 10x3/uL (0.0-0.7); #Monocytes 0.84 10x3/uL (0.11-0.59); #Neutrophils 4.81 10x3/uL (1.40-6.50); %Basophils 0.6 % (0.0-1.0); %Eosinophils 4.0 % (0.0-10.0); %Lymphocytes 25.2 % (21.0-51.0); %Monocytes 10.4 % (0.0-10.0); %Neutrophils 59.6 % (42.0-75.0); Hematocrit 28.9 % (36.0-47.0); Hemoglobin 8.2 g/dL (12.0-16.0); Mean Corpuscular Hemoglobin 25.8 pg (27.0-31.0); Mean Corpuscular Volume 90.9 fL (78.0-98.0); Platelet Count 229 10x3/uL (130-400); Red Blood Cell (RBC) Count 3.18 mill/uL (4.20-5.40); White Blood Cell (WBC) Count 8.07 10x3/uL (4.8-10.8)
[2025-07-16 07:06] LABS: INR-International Normal Ratio 1.1; PTT 42.7 sec (22.9-36.1); Prothrombin Time 13.8 sec (12.0-14.7)
[2025-07-16 07:07] LABS: ALT (SGPT) 22 U/L (Less than 34); AST (SGOT) 16 U/L (11-34); Albumin 3.1 g/dL (3.1-4.5); Alkaline Phosphatase 85 U/L (40-110); Anion Gap 23 mmol/L (10-20); BUN (Urea Nitrogen) 59 mg/dL (9.8-20.1); Bilirubin, Total 0.2 mg/dL (0.3-1.2); Calc. Creatinine Clearance 7 mL/min (70-130); Calcium 8.8 mg/dL (7.8-10.44); Carbon Dioxide 21 mmol/L (23-31); Chloride 104 mmol/L (98-107); Globulin 3.4 g/dL (2.4-3.5); Glucose 152 mg/dL (80-115); Potassium 5.0 mmol/L (3.5-5.1); Sodium 143 mmol/L (136-145)
[2025-07-16 10:27] LABS: Anisocytosis SLIGHT = 6-15 cells HPF (0-5); Burr Cells MODERATE= 6-15 cells HPF (0-1); Platelet Adequacy Comment Platelets Normal; Polychromasia SLIGHT = 2-3 cells HPF (0-2)
[2025-07-16] MEDS: Activase 2 MG VIAL CATH SCH (10:59)
[2025-07-16] MEDS: EPOETIN ALFA-EPBX (ESRD) 10,000 UNITS/ML VIAL IVP SCH (11:42)
[2025-07-16] MEDS ORDERED: PHENYLEPHRINE-NS 100 MCG/ML 10 ML SYRINGE ONE ×2 (14:06→16:34)
[2025-07-16] MEDS ORDERED: Lidocaine 1% PF 5 ML VIAL ONE (14:06)
[2025-07-16] MEDS ORDERED: Ondansetron PF 4 MG/2 ML Vial ONE (14:06)
[2025-07-16] MEDS ORDERED: Lidocaine 2% 6 ML (Jelly) SYR ONE (14:06)
[2025-07-16] MEDS ORDERED: Rocuronium Bromide 10 MG/ML (10ML VIAL) ONE (14:06)
[2025-07-16] MEDS ORDERED: Bupivacaine 0.25% HCL 30 ML VIAL ONE (14:18)
[2025-07-16] MEDS ORDERED: Heparin 10,000 UNITS/ 10 ML VIAL ONE ×2 (14:18→15:25)
[2025-07-16] MEDS ORDERED: Heparin 5,000 UNITS/ML VIAL ONE (14:18)
[2025-07-16] MEDS ORDERED: Etomidate 40 MG (20 mL) VIAL ONE (14:33)
[2025-07-16] MEDS ORDERED: CEFAZOLIN 1 GM VIAL ONE (14:44)
[2025-07-16] MEDS ORDERED: Bacitracin Zinc Ointment 30 gm TUBE ONE (17:18)
[2025-07-16] MEDS ORDERED: SUGAMMADEX SODIUM 200 MG/2 ML VIAL ONE (17:19)
[2025-07-17 12:29] LABS: #Basophils 0.10 10x3/uL (0.0-0.2); #Eosinophils 0.09 10x3/uL (0.0-0.7); #Monocytes 1.93 10x3/uL (0.11-0.59); #Neutrophils 9.52 10x3/uL (1.40-6.50); %Basophils 0.8 % (0.0-1.0); %Eosinophils 0.7 % (0.0-10.0); %Lymphocytes 11.3 % (21.0-51.0); %Monocytes 14.6 % (0.0-10.0); %Neutrophils 71.7 % (42.0-75.0); Hematocrit 27.5 % (36.0-47.0); Hemoglobin 8.1 g/dL (12.0-16.0); Mean Corpuscular Hemoglobin 26.1 pg (27.0-31.0); Mean Corpuscular Volume 88.7 fL (78.0-98.0); Platelet Count 160 10x3/uL (130-400); Red Blood Cell (RBC) Count 3.10 mill/uL (4.20-5.40); White Blood Cell (WBC) Count 13.26 10x3/uL (4.8-10.8)
[2025-07-17 15:48] VITALS: BP 102/53; TEMP 98.7
== END 2025-07-17 16:45 | disposition home or self-care (01) | DRG 252 ==
LOC: SDC 08:25 → T4-B 11:50
PROVIDERS: ADMIT Surgery; ATTEND Surgery
PROC: 5A1D70Z Performance of Urinary Filtration, Intermittent, Less than 6 Hours Per Day (ICD-10-PCS; 2025-07-07)
PROC: 03C50ZZ Extirpation of Matter from Right Axillary Artery, Open Approach (ICD-10-PCS; principal; 2025-07-11)
PROC: 05C70ZZ Extirpation of Matter from Right Axillary Vein, Open Approach (ICD-10-PCS; 2025-07-11)
PROC: 3E03329 Introduction of Other Anti-infective into Peripheral Vein, Percutaneous Approach (ICD-10-PCS; 2025-07-11)
PROC: 5A09357 Assistance with Respiratory Ventilation, Less than 24 Consecutive Hours, Continuous Positive Airway Pressure (ICD-10-PCS; 2025-07-11)
PROC: 03C50ZZ Extirpation of Matter from Right Axillary Artery, Open Approach (ICD-10-PCS; 2025-07-16)
PROC: 05C70ZZ Extirpation of Matter from Right Axillary Vein, Open Approach (ICD-10-PCS; 2025-07-16)
PROC: 057 Upper Veins, Dilation (ICD-10-PCS; 2025-07-16)
PROC: 0JH63XZ Insertion of Tunneled Vascular Access Device into Chest Subcutaneous Tissue and Fascia, Percutaneous Approach (ICD-10-PCS; 2025-07-16)
PROC: B518ZZA Fluoroscopy of Superior Vena Cava, Guidance (ICD-10-PCS; 2025-07-16)
PROC: 02HV33Z Insertion of Infusion Device into Superior Vena Cava, Percutaneous Approach (ICD-10-PCS; 2025-07-16)
PROC: 3E033XZ Introduction of Vasopressor into Peripheral Vein, Percutaneous Approach (ICD-10-PCS; 2025-07-16)
PROC: 05HY33Z Insertion of Infusion Device into Upper Vein, Percutaneous Approach (ICD-10-PCS; 2025-07-17)
DX: T82.868A Thrombosis due to vascular prosthetic devices, implants and grafts, initial encounter (principal); N18.6 End stage renal disease; N25.81 Secondary hyperparathyroidism of renal origin; I87.1 Compression of vein; E87.20 Acidosis, unspecified; I12.0 Hypertensive chronic kidney disease with stage 5 chronic kidney disease or end stage renal disease; E87.5 Hyperkalemia; E78.5 Hyperlipidemia, unspecified; E11.22 Type 2 diabetes mellitus with diabetic chronic kidney disease; I25.10 Atherosclerotic heart disease of native coronary artery without angina pectoris; G47.33 Obstructive sleep apnea (adult) (pediatric); K21.9 Gastro-esophageal reflux disease without esophagitis; E11.43 Type 2 diabetes mellitus with diabetic autonomic (poly)neuropathy; K31.84 Gastroparesis; D63.1 Anemia in chronic kidney disease; F41.9 Anxiety disorder, unspecified; F32.A Depression, unspecified; M54.30 Sciatica, unspecified side; E11.42 Type 2 diabetes mellitus with diabetic polyneuropathy; E87.70 Fluid overload, unspecified; E83.39 Other disorders of phosphorus metabolism; G47.00 Insomnia, unspecified; Z79.4 Long term (current) use of insulin; Z86.718 Personal history of other venous thrombosis and embolism; Z99.2 Dependence on renal dialysis; Z90.49 Acquired absence of other specified parts of digestive tract; Z90.710 Acquired absence of both cervix and uterus; Z95.5 Presence of coronary angioplasty implant and graft; Z98.890 Other specified postprocedural states; Z88.1 Allergy status to other antibiotic agents; Z88.8 Allergy status to other drugs, medicaments and biological substances; I25.2 Old myocardial infarction; Z79.01 Long term (current) use of anticoagulants; Z79.899 Other long term (current) drug therapy; Z88.5 Allergy status to narcotic agent; Z86.711 Personal history of pulmonary embolism; E11.65 Type 2 diabetes mellitus with hyperglycemia; K59.00 Constipation, unspecified; Y83.2 Surgical operation with anastomosis, bypass or graft as the cause of abnormal reaction of the patient, or of later complication, without mention of misadventure at the time of the procedure
CPT/HCPCS: 36415; 36416; 71045; 80048; 80053; 83036; 83970; 84100; 84132; 85025; 85610; 85730; 90935; A6258; C1713; C1750; G0257; J0169; J0665; J0690; J1100; J1642; J1644; J1815; J2250; J2704; J2720; J2997; J3373; Q5105

== ENCOUNTER 2025-07-20 10:26 | Emergency (ER) | payer MEDICARE, BC ==
[2025-07-20] MEDS ORDERED: Acetaminophen 325 MG TAB ONE (15:45)
[2025-07-20] MEDS ORDERED: HYDROcodone/Acetaminophen 5/325 mg Tablet ONE (17:55)
== END 2025-07-20 21:13 | disposition home or self-care (01) ==
LOC: ERS 10:26
DX: N18.6 End stage renal disease (principal); Z99.2 Dependence on renal dialysis; D64.9 Anemia, unspecified; R09.02 Hypoxemia; S91.311A Laceration without foreign body, right foot, initial encounter; W19.XXXA Unspecified fall, initial encounter
CPT/HCPCS: 12001; 36430; 70450; 71045; 72125; 72170; 73610; 73630; 80053; 82550; 83735; 84484 ×2; 85025; 85610; 85730; 86850; 86900; 86901; 86920; 93005; 94760; 99284; 99285; 99291; G0390; P9016; 36415; 90935; G0257; J2003